=== PATIENT | male | born 1960 | race Asian ===

== ENCOUNTER 2025-04-15 10:32 | Emergency (ER) | payer BC, MEDICARE, OTHER, SELFPAY ==
--- NOTE | ~2025-04-15 | XR_ITS ---
EXAM/PROCEDURE: XR chest 2V - 04/15/2025 13:05 CDT HISTORY: 64 years old Male with Swallowed foreign body TECHNIQUE: Two view(s) of the chest. COMPARISON: None available. FINDINGS: LUNGS/ PLEURA: No focal consolidation. No appreciable pneumothorax or large pleural effusion. HEART/ MEDIASTINUM: Heart appears normal in size. BONES: No acute osseous abnormality. OTHER: Visualized upper abdomen is unremarkable. No radiopaque foreign body seen. IMPRESSION: No acute process. No radiopaque foreign body seen. Reviewed, dictated and finalized at location A.
--- NOTE | ~2025-04-15 | XR_ITS ---
EXAMINATION: XR esophogram water soluble DATE: 04/15/2025 14:34 INDICATION: Concern for esophageal injury TECHNIQUE: The patient drank water-soluble contrast. Fluoroscopic spot radiographs of the hypopharynx and esophagus were obtained. Fluoroscopy exposure time was 0.9 minutes. A total of 856 fluoroscopic images recorded. Total DAP was 1.3 Gycm^2. COMPARISON: None. FINDINGS: There is and up to 2 cm diameter diverticulum with smooth mucosal margins arising from the right side of the mid thoracic esophagus which transiently fills with gas and contrast. No evident ex tra luminal contrast extravasation or mucosal irregularity to suggest esophageal injury. No foreign b odies identified along the esophagus. Esophageal motility is normal. There is no hiatal hernia. IMPRESSION: 1. Likely incidental 2 cm esophageal diverticulum arising from the right side of the midthoracic esop hagus. No mucosal irregularities or extra luminal extravasation to suggest esophageal injury or evide nt retained foreign bodies. Reviewed, dictated and finalized at location A. IMPRESSION: 1. Likely incidental 2 cm esophageal diverticulum arising from the right side o f the midthoracic esophagus. No mucosal irregularities or extra luminal extrava sation to suggest esophageal injury or evident retained foreign bodies.
[2025-04-15 10:43] VITALS: BP 181/89; PULSE 73; RESP 18; TEMP 36.3; O2SAT 100
--- OUTSIDE RECORDS SUMMARY | 2025-04-15 12:09 | XMS_ITS | Encounter Summary ---
Author Name [facility] [facility] [place] Address [address] [place] [address] Care Team Providers Care Charity Fundraiser Name Role Phone LORY LUU Primary Care Provider [facility] Insurance Providers: All historical and current Section Date Range: From patient's date of to the date document was created. This section includes the names of all active insurance providers for the patient. Insurance Provider Type of Coverage Plan Name Start of Policy Coverage End of Policy Coverage Group Number Member ID Insurance Provider's Telephone Number Policy Dailey's Name Patient's Relationship to Policy Dailey [place] PREFERRED PROVIDER ORGANIZAT ION (PPO) [facility] [facility] [facility] OUT OF Jun 10, 2017 [id number] [phone] Lana ESCOBAR PATIENT ANTHEM [place]BS [place] PREFERRED PROVIDER ORGANIZAT ION (PPO) HEALT HSELE CT OUT OF Jun 10, 2017 [id number] [phone] Lana ESCOBAR PATIENT ANTHE[place] COMPREHEN SIVE MAJOR MEDICAL HEALT H SELEC T BENNIE D Jun 10, 2017 [id number] [phone] Lana ESCOBAR PATIENT [place] PREFERRED PROVIDER ORGANIZAT ION (PPO) HEALT HSELE CT OUT OF Jun 10, 2017 [id number] [phone] KLINCAR,T HOMAS PATIENT [place] PREFERRED PROVIDER ORGANIZAT ION (PPO) ALY AYALA COMM AIDAN Jun 10, 2008 [id number] [phone] Lana ESCOBAR [place] PATIENT BC BS [place] POINT OF SERVICE HEALT H[facility]LE [facility] OF [place] Jun 10, 2017 [id number] IMANIDEBORAHLana PONCHOS PATIENT [place] BS [place] POINT OF SERVICE [facility] [facility] OF [place] Jun 10, 2017 [id number] AKT ESCOBAR PATIENT BC BS [place] POINT OF SERVICE [facility] OF [place] * Jun 10, 2017 [id number] LUZKAT PATIENT [place] PREFERRED PROVIDER ORGANIZAT ION (PPO) HEALT HSELE CT OUT OF Jun 10, 2017 [id number] [phone] DYANLana MENDEZ P[place] PREFERRED PROVIDER ORGANIZAT ION (PPO) ALY AYALA [facility]ITY Jun 10, 2008 [id number] [phone] DYANANDREALana HOMAS PATIENT BCBS [place] COMPREHEN SIVE MAJOR MEDICAL HEALT H SELEC T SECON D Jun 10, 2017 [id number] LUZLana HOMAS PATIENT BCBS [place] COMPREHEN SIVE MAJOR MEDICAL HEALT HSELE CT SECON DA Jun 10, 2017 [id number] [phone] Lana ESCOBAR [place] PATIENT BCBS [place]) PREFERRED PROVIDER ORGANIZAT ION (PPO) HEALT HSELE CT OUT OF Jun 10, 2017 [id number] DYANANDREA,Lana HOMAS PATIENT [place]) PREFERRED PROVIDER ORGANIZAT ION (PPO) HEALT HSELE CT OUT OF Jun 10, 2017 [id number] Lana ESCOBAR HOMAS PATIENT [employer] ([id number]) PRESCRIPT [place] Oct 10, 2023 [id number] KAT ESCOBAR PATIENT MEDICARE (WNR) MEDICARE (M) PART A Jun 10, 2023 PART A [id number] Lana ESCOBAR PATIENT MEDICARE (WNR) MEDICARE (M) PART B Jun 10, 2023 PART B [id number] [phone] Lana ESCOBAR PATIENT MEDICARE (WNR) MEDICARE (M) PART A Jun 10, 2023 PART A [id number] [phone] Lana ESCOBAR PATIENT MEDICARE (WNR) MEDICARE (M) PART B Jun 10, 2023 PART B [id number] LUZLana PAMELLA PATIENT OPTUM RX PRESCRIPT ION [place]BS [place] Jun 10, 2017 [id number] Lana ESCOBAR PATIENT OPTUM RX PRESCRIPT ION HEALT HSELE CT [place] RX Jun 10, 2017 [id number] Lana ESCOBAR PATIENT OPTUMRX PRESCRIPT ION RX PLAN Jun 10, 2017 [id number] [phone] Lana ESCOBAR PATIENT PRIME THERAPEUTI CS PRESCRIPT ION BCBSI L ILDR Jun 10, 2008 ILDR [id number] [phone] Lana ESCOBAR PATIENT -FO R-LIFE TRICA RE FOR LIFE WNR Jun 10, 2023 FOR LIFE [id number] [phone] DYANANDREALana PAMELLA PATIENT [employer] [place] PREFERRED PROVIDER ORGANIZAT ION (PPO) [facility]ALT [facility] [facility] OF [place] Jun 10, 2017 [id number] [phone] Lana ESCOBAR PATIENT [employer] [place] POINT OF SERVICE [facility]ALT [facility]LE [place] OF [place] Jun 10, 2017 [id number] [phone] Lana ESCOBAR PATIENT [employer] [place]) PREFERRED PROVIDER ORGANIZAT ION (PPO) DEIRDRE SANTANA MMUNI TYCOL Jun 10, 2008 [id number] [phone] DYANANDREALana CAN PATIENT Selected Encounter This section includes the information on record at [place] for the Encounter. Date/Time Encounter Type Encounter Description Reason Provider Source Feb 06, 2025 01:00 PM HEARING AID XM&SLCTN [facility] AUDIOLOGY ICD-10-CM H90.3 Sensorineural hearing loss, bilateral MARCO PFEIFFER Encounter Template Text not used by [place] Assessments - Encounter Diagnoses This section includes the primary and secondary diagnoses documented for the Encounter. Date/Time Primary/Secondary Diagnosis Diagnosis Name Provider Source Feb 06, 2025 01:57 PM PRIMARY Sensorineural hearing loss, bilateral PARESH LONGORIA [facility] Plan of Treatment: Future Appointments (+ 6 months) and Future Tests (+/- 45 days) The Plan of Treatment section includes future care activities for the patient from all [place] treatmentfacilities. This section includes future appointments and future orders which are active, pending or scheduled. Future Appointments This section includes appointments that were scheduled to occur 6 months from the date of the Encounter, up to a maximum of 20 appointments. The data comes from all [place] treatment facilities. Appointment Date/Time Appointment Type Appointme nt Facility Name Mar 22, 2025 07:15 AM AMBULATORY - [facility] Lab Results: +/- 30 days of the encounter This section includes the Chemistry and Hematology Lab Results on record with [place] for the patient. Radiology Reports and Pathology Reports are provided separately, in subsequent sections. Lab Results This section contains the Chemistry/Hematology Results that were resulted 30 days before or 30 daysafter the date of the Encounter. Date/Time Source Result Type Result - Unit Interpretation Reference Range Specimen Type Comment Jan 31, 2025 09:53 AM [facility] FOLATE (STL-MA) SERUM Specimen Type: SERUM No comment entered. Ordering Provider: LORY LUU Report Released Date/Time: Jan 31, 2025 09:50 AM Reporting Lab: [address] [phone] Performing Lab: [address] [address] FOLATE (STL-MA) >20.0 ng/mL H 7-20 Jan 31, 2025 09:48 AM [facility] MAGNESIUM PLASM A Specimen Type: PLASMA No comment entered. Ordering Provider: LORY LUU Report Released Date/Time: Jan 10, 2025 01:22 PM Reporting Lab: [facility] [address] [address] Performing Lab: [address] [address] MAGNESIUM 2.4 mg/dL 1.6-2.6 Jan 31, 2025 09:48 AM [facility] B12 SERUM Specimen Type: SERUM No comment entered. Ordering Provider: LORY LUU Report Released Date/Time: Jan 10, 2025 01:22 PM Reporting Lab: [address] [phone] Performing Lab: [address] [address] B12 681 pg/mL 213-816 Jan 31, 2025 09:48 AM [facility] VITAMIN D, 25-HYDROXY SERUM Speci men Type: SERUM No comment entered. Ordering Provider: LORY LUU Report Released Date/Time: Jan 10, 2025 01:22 PM Reporting Lab: [address] [address] Performing Lab: [address] [address] VITAMIN D, 25-HYDROXY 52.6 ng/mL 30-96 Jan 31, 2025 09:48 AM [facility] URINE ALBUMIN PANEL (MA) URINE Sp ecimen Type: URINE No comment entered. Ordering Provider: LORY LUU Report Released Date/Time: Jan 10, 2025 01:22 PM Reporting Lab: [address] [phone] Performing Lab: [address] [phone] uACR (PB-MA) 28.8 mg/g <=30 CREATININE (URINE)(MA) 52 mg/dL URINE ALBUMIN (MA) 1.5 mg/dL Jan 31, 2025 09:48 AM [facility] HGA1C BLOOD Specimen Type: BLOOD No comment entered. Ordering Provider: LORY LUU Report Released Date/Time: Jan 10, 2025 01:22 PM Reporting Lab: [address] [phone] Performing Lab: [facility] [address] [place] [address] HGA1C 7.0 H 4.0-6.0 Jan 31, 2025 09:48 AM [facility] BASIC METABOLIC PANEL PLASMA Speci men Type: PLASMA No comment entered. Ordering Provider: LORY LUU Report Released Date/Time: Jan 10, 2025 01:22 PM Reporting Lab: [address] [phone] Performing Lab: [address] [address] CREATININE 1.5 mg/dL H .7-1.3 UREA NITROGEN 32 mg/dL H 9.0-25.0 GLUCOSE 130 mg/dL H 72-99 SODIUM 138 meq/L 136-145 POTASSIUM 5.0 meq/L 3.5-5 CHLORIDE 104 meq/L 98-107 CARBON DIOXIDE 21 meq/L L 22-31 CALCIUM 9.6 mg/dL 8.4-10.4 EGFR (CKD-EPI 2020) 51 Jan 31, 2025 09:48 AM [facility] HEPATIC FUNCTION PANEL (MA) PLASMA Specimen Type: PLASMA No comment entered. Ordering Provider: LORY LUU Report Released Date/Time: Jan 10, 2025 01:22 PM Reporting Lab: [address] [phone] Performing Lab: [address] [address] PROTEIN 6.9 g/dL 6.0-8.6 ALBUMIN 4.5 g/dL 3.4-5.0 TOTAL BILIRUBIN 0.5 mg/dL 0.2-1.2 ALKALINE PHOSPHATASE 74 U/L 40-150 AST/SGOT 23 U/L 5-34 ALT/SGPT 21 U/L 8-40 CONJ. BILIRUBIN 0.2 mg/dL 0.0-0.5 Jan 31, 2025 09:48 AM [facility] CBC BLOOD Specimen Type: BLOOD No comment entered. Ordering Provider: LORY LUU Report Released Date/Time: Jan 10, 2025 01:22 PM Reporting Lab: [address] [address] Performing Lab: [place] [phone] WBC 6.8 10*3/uL 3.6-11.2 RBC 4.65 10*6/uL 4.10-5.70 HGB 14.3 g/dL 13.1-16.8 HCT 42.3 38.2-48.4 MCV 91.0 fL 80.0-100.0 MCH 30.8 pg 27.0-34.0 MCHC 33.8 g/dL 33.0-36.0 PLT 323 10*3/uL 150-400 MPV 9.7 fL 7.5-11.2 RDW 11.5 L 11.8-15.1 LYMPHOCYTES, AUTO % 16.2 MONOCYTES, AUTO % 7.8 NEUTROPHILS, AUTO % 63.5 EOSINOPHILS, AUTO % 11.5 BASOPHILS, AUTO % 0.9 LYMPHOCYTES, ABSOLUTE 1.10 10*3/uL 0.77- 4.50 MONOCYTES, ABSOLUTE 0.53 10*3/uL 0.19-0. 8 NEUTROPHILS, ABSOLUTE 4.32 10*3/uL 2.10- 8.00 EOSINOPHILS, ABSOLUTE 0.78 10*3/uL H 0.00- 0.60 BASOPHILS, ABSOLUTE 0.06 10*3/uL 0.00-0. 20 IMMATURE GRANS, AUTO % 0.1 IMMATURE GRANS, AUTO ABS 0.01 10*3/uL 0. 00-0.05 Jan 31, 2025 09:48 AM [facility] TSH (MA-PB) SERUM Specimen Typ e: SERUM No comment entered. Ordering Provider: LORY LUU Report Released Date/Time: Jan 10, 2025 01:22 PM Reporting Lab: [facility] [address] [place], [place] [phone] Performing Lab: [place] [phone] TSH 2.579 u[IU]/mL 0.470-5.000 Jan 31, 2025 09:48 AM [facility] PSA (MA) SERUM Specimen Type: SERUM No comment entered. Ordering Provider: LORY LUU Report Released Date/Time: Jan 10, 2025 01:22 PM Reporting Lab: [place] [phone] Performing Lab: [address] [place] [address] PSA (MA) 1.5 ng/mL 0.0-4.0 Jan 31, 2025 09:48 AM [facility] URINALYSIS (MA-EV) URINE Specimen Type: URINE Comment: Microscopic not indicated Ordering Provider: LORY LUU Report Released Date/Time: Jan 10, 2025 01:22 PM Reporting Lab: [place] [phone] Performing Lab: [place] [phone] URINE COLOR Yellow Yellow SPECIFIC GRAVITY 1.018 UROBILINOGEN Normal mg/dL 0.1-1.0 U.BILIRUBIN Negative mg/dL Negative U.KETONES Negative mg/dL Negative U.PROTEIN Negative mg/dL Negative U.PH 6.5 5.0-8.0 APPEARANCE Clear Clear U.BLOOD Negative mg/dL Negative U.NITRITE Negative mg/dL Negative U.LEUK.EST. Negative Negative URINE GLUCOSE (PB-MA-EV) >1000 mg/dL H Neg ative Jan 31, 2025 09:48 [address] [facility] LIPID PANEL (MA) PLASMA Specimen T ype: PLASMA No comment entered. Ordering Provider: LORY LUU Report Released Date/Time: Jan 10, 2025 01:22 PM Reporting Lab: [address] [phone] Performing Lab: [address] [address] CHOLESTEROL 78 mg/dL 0-200 TRIGLYCERIDE 162 mg/dL H 0-150 CALCULATED LDL 11 mg/dL HDL(New) 35 mg/dL L >=40 Encounter Notes: All associated encounter notes This section contains the clinical notes associated to the Encounter. Date/Time Encounter Note(s) Provider Source Feb 06, 2025 12:53 PM AUDIOLOGY E & M NO TE: LOCAL TITLE: AUDIOLOGY EVALUATION [place] STANDARD TITLE: AUDIOLOGY E & M NOTE DATE OF NOTE: FEB 06, 2025@12:53 ENTRY DATE: FEB 06, 2025@13:01:25 AUTHOR: PARESH LONGORIA COSIGNER: HOMA PFEIFFER URGENCY: STATUS: COMPLETED AUDIOLOGY EVALUATION LUIS Has ADDENDA S: C/O: is seen today for an audiologic evaluation due to slight gradual decrease in hearing, bilaterally over the past few years. reports difficulties understanding speech with his current hearing aids, especially in noise, and while at the theater. He is interested in updated hearing aid technology. denies otalgia, aural fullness, and otorrhea. H/O: Vet denied major changes in medical or hearing health history since last hearing evaluation. Hearing loss established by previous testing: [x] Sensorineural [] Mixed [] Conductive [] None (Normal hearing) Tinnitus established by previous testing: [x] Yes [] No Current hearing aid technology: [x] Yes [] No Hearing Aid Information: Right ear: Umer Edge AI 2400 SN: [id number] Fittin Left ear: Umer Edge AI 2400 SN: [id number] Fittin O: Otoscopic evaluation revealed: Clear ear canals [x] R [x] L Non occluding cerumen [] R [] L Occluding cerumen [] R [] L Functional limitations [x] none A: Audiometric results indicated: RIGHT EAR: CONFIGURATION: severe to profound sensorineural hearing loss TO [] Normal [] Normal [] Mild [] Mild [] Moderate [] Moderate [] Moderately-severe [] Moderately-severe [x] Severe [] Severe [] Profound [x] Profound TYPE: [x] Sensorineural hearing loss [] Mixed hearing loss [] Conductive hearing loss TYMPANOMETRIC RESULTS [] Normal [x] Abnormal: 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 ACOUSTIC REFLEX RESULTS IPSILATERAL 500HZ []Present [] Absent/Elevated 1000HZ []Present [] Absent/Elevated 2000HZ []Present [] Absent/Elevated 4000hz []Present [] Absent/Elevated [x]Not performed/ unable to seal CONTRALATERAL (PROBE RIGHT) 500HZ []Present [] Absent/Elevated 1000HZ []Present [] Absent/Elevated 2000HZ []Present [] Absent/Elevated 4000hz []Present [] Absent/Elevated [x]Not performed/ unable to seal LEFT EAR: CONFIGURATION: mild sloping to moderately-severe sensorineural hearing loss TO [] Normal [] Normal [x] Mild [] Mild [] Moderate [] Moderate [] Moderately-severe [x] Moderately-severe [] Severe [] Severe [] Profound [] Profound TYPE: [x] Sensorineural hearing loss [] Mixed hearing loss [] Conductive hearing loss TYMPANOMETRIC RESULTS [x] Normal [] Abnormal: [] Not completed: Could not establish seal. ACOUSTIC REFLEX RESULTS IPSILATERAL 500HZ []Present [] Absent/Elevated 1000HZ []Present [] Absent/Elevated 2000HZ []Present [] Absent/Elevated 4000hz []Present [] Absent/Elevated [x]Not performed/ unable to seal CONTRALATERAL (PROBE LEFT) 500HZ []Present [] Absent/Elevated 1000HZ []Present [] Absent/Elevated 2000HZ []Present [] Absent/Elevated 4000hz []Present [] Absent/Elevated [x]Not performed/ unable to seal Speech Recognition ability: RIGHT EAR: 48% LEFT EAR: 100% []Excellent 94-100% [x]Excellent 94-100% [] Good 80-92% [] Good 80-92% [] Fair 70-78% [] Fair 70-78% [x] Poor 0-68% [] Poor 0-68% Discussed results with . Today's results are consistent with previous testing completed on 01/14/2022 Hearing aid candidate: [x] yes [] no interested in hearing aids: [x] yes [] no Earmold impressions taken: [] yes [x] no 's hearing loss is so significant that it interferes with or restricts communication to the extent that it affects the 's participation in the provision of health care services. Discussed different styles of hearing aids and relevant assistive listening devices with patient. [place]'s hobbies include attending live theater monthly. Telecoil was discussed and the option a T-coil in a SUE style hearing aid was offered. [place] declined a SUE style hearing aid and would like to continue using an in-the-ear (ITE) style hearing aid. Remote Rashawn Plus was discussed and [place] is interested in trying this for the telecoil feature in the [facility]. Hearing aids were cleaned, microphones brushed, wax filters replaced, and listening check revealed clear sound quality. Hearing aids were reprogrammed to today's audiogram and [place] reported good sound quality. He declined any further acoustic adjustments. P: Diagnostic treatment plan: Re-test hearing per request Hearing aid(s) ordered: Binaural Iwona Garcia AI ITC-R Order number: [id number] Accessories ordered: Remote Rashawn Plus and TV Streamer Order number: [id number] Assistive listening device ordered: [] Amplified phone [] Smoke detector [] Carbon Monoxide detector [] Pocketalker [] Tinnitus masker [x] None Vet will follow up in 30 days for issuing of hearing aids. Patient Prognosis to treatment: [] Good [x] Fair [] Poor /yara/ PARESH LONGORIA Audiology Soft Work Wrapper Examiner Signed: 02/06/2025 13:57 /yara/ STEPHANIE DAY, OSVALDO-A THERMIT WELDING MACHINE OPERATOR Cosigned: 02/06/2025 15:26 02/06/2025 ADDENDUM STATUS: COMPLETED This provider has reviewed this progress note, and is in agreement with the audiology encounter and clinical thinking of this progress note. /yara/ STEPHANIE DAY, OSVALDO-A THERMIT WELDING MACHINE OPERATOR Signed: 02/06/2025 15:26 PARESH LONGORIA [facility]
--- OUTSIDE RECORDS SUMMARY | 2025-04-15 12:09 | XMS_ITS | Encounter Summary ---
Author Name [facility] Address [address] [place] [address] Care Team Providers Care Counseling Aide Name Role Phone LORY LUU Primary Care Provider [facility] Insurance Providers: All historical and current [...] HSELE CT OUT OF Jun 10, 2017 [id number] [phone] Lana ESCOBAR PATIENT [employer] [employer] PREFERRED PROVIDER ORGANIZAT ION (PPO) HEALT HSELE CT OUT OF Jun 10, 2017 [phone] Lana ESCOBAR PATIENT [place] COMPREHEN SIVE MAJOR MEDICAL HEALT H [place] T BENNIE D Jun 10, 2017 [id number] [phone] Lana ESCOBAR PATIENT [place] PREFERRED PROVIDER ORGANIZAT ION (PPO) HEALT HSELE CT OUT OF Jun 10, 2017 [id number] [phone] KLINCAR,T HOMAS PATIENT [place] PREFERRED PROVIDER ORGANIZAT ION (PPO) ALY AYALA COMM AIDAN Jun 10, 2008 [id number] Lana ESCOBAR [place] PATIENT BC BS [place] POINT OF SERVICE HEALT HSELE CT OF [place] Jun 10, 2017 [id number] DYANANDREALana PONCHOS PATIENT [place] BS [place] POINT OF SERVICE [facility] [facility] OF [place] Jun 10, 2017 [id number] LUZKAT PATIENT BC BS [place] POINT OF SERVICE HEALT [facility] OF [place] * Jun 10, 2017 [id number] KAT ESCOBAR PATIENT [place] PREFERRED PROVIDER ORGANIZAT ION (PPO) HEALT HSELE CT OUT OF Jun 10, 2017 [id number] [phone] Lana ESCOB[place]REFERRED PROVIDER ORGANIZAT ION (PPO) ALY AYALA COMMU NITY Jun 10, 2008 [id number] [phone] Lana ESCOBAR [place] PATIENT BCBS [place] COMPREHEN SIVE MAJOR MEDICAL HEALT H SELEC T SECON D Jun 10, 2017 [id number] Lana ESCOBAR [place] PATIENT [place] COMPREHEN SIVE MAJOR MEDICAL HEALT HSELE CT SECON DA Jun 10, 2017 [id number] [phone] Lana ESCOBARS PATIENT [place] PREFERRED PROVIDER ORGANIZAT ION (PPO) HEALT HSELE CT OUT OF Jun 10, 2017 [id number] Lana ESCOBAR [place] PATIENT [place] PREFERRED PROVIDER ORGANIZAT ION (PPO) HEALT HSELE CT OUT OF Jun 10, 2017 [id number] Lana ESCOBARS PATIENT [employer] ([id number]) PRESCRIPT ION [place] Oct 10, 2023 [id number] [phone] KAT ESCOBAR PATIENT MEDICARE (WNR) MEDICARE (M) PART A Jun 10, 2023 PART A [id number] Lana ESCOBARS PATIENT MEDICARE (WNR) MEDICARE (M) PART B Jun 10, 2023 PART B [id number] [phone] Lana ESCOBARS PATIENT MEDICARE (WNR) MEDICARE (M) PART A Jun 10, 2023 PART A [id number] Lana ESCOBAR PATIENT MEDICARE (WNR) MEDICARE (M) PART B Jun 10, 2023 PART B [id number] [phone] Lana ESCOBAR PATIENT OPTUM RX PRESCRIPT ION [place] Jun 10, 2017 [id number] [id number] Lana ESCOBAR PATIENT OPT[employer] RX PRESCRIPT ION HEALT HSELE CT [place] RX Jun 10, 2017 [id number] [phone] Lana ESCOBAR PATIENT OPTUMRX PRESCRIPT ION RX PLAN Jun 10, 2017 [id number] [phone] Lana ESCOBAR PATIENT PRIME THERAPEUTI CS PRESCRIPT ION BCBSI L ILDR Jun 10, 2008 ILDR [id number] [phone] Lana ESCOBAR PATIENT -FO R-LIFE TRICA RE FOR LIFE WNR Jun 10, 2023 FOR LIFE [id number] [phone] DYANANDREALana PATIENT [employer] [place] PREFERRED PROVIDER ORGANIZAT ION (PPO) HEALT [facility]SELE [facility] OF [place] Jun 10, 2017 [id number] [phone] Lana ESCOBAR PATIENT [employer] [place] POINT OF SERVICE HEALT HSELE CT OF [place] Jun 10, 2017 [id number] [phone] Lana ESCOBAR PATIENT [employer] [place]) PREFERRED PROVIDER ORGANIZAT ION (PPO) DEIRDRE SANTANA MMUNI TYCOL Jun 10, 2008 [id number] Lana ESCOBAR PATIENT Selected Encounter This section includes the information on record at [facility] for the Encounter. Date/Time Encounter Type Encounter Description Reason Provider Source Mar 22, 2025 07:15 AM HEARING AID REPAIR/MODIFYIN G AUDIOLOGY ICD-10-CM H90.3 Sensorineural hearing loss, bilateral MARK KEITA I[facility] Encounter Template Text not used by [facility] Assessments - Encounter Diagnoses This section includes the primary and secondary diagnoses documented for the Encounter. Date/Time Primary/Secondary Diagnosis Diagnosis Name Provider Source Mar 22, 2025 07:46 AM PRIMARY Sensorineural hearing loss, bilateral MARK KEITA [facility] Encounter Notes: All associated encounter notes This section contains the clinical notes associated to the Encounter. Date/Time Encounter Note(s) Provider Source Mar 22, 2025 07:07 AM AUDIOLOGY PROGRESS NOTE: LOCAL TITLE: AUDIOLOGY HEARING AID ISSUE PA STANDARD TITLE: AUDIOLOGY PROGRESS NOTE DATE OF NOTE: MAR 22, 2025@07:07 ENTRY DATE: MAR 22, 2025@07:07:11 AUTHOR: MARK KEITA EXP COSIGNER: URGENCY: STATUS: COMPLETED AUDIOLOGY HEARING AID ISSUE LUIS Has ADDENDA HEARING AID ISSUE- COLIN S: C/O: reports for hearing aid issuance. Previous hearing aid user: [x] yes [] no H/O: Date of last hearing evaluation: 02/06/25 Type of hearing loss established: [x] Sensorineural [] Mixed [] Conductive O: Otoscopic inspection revealed: Clear ear canals [x] R [x] L Non occluding wax [] R [] L Occluding wax [] R [] L Functional limitations [x] none Strengths: Motivated user Family Members/support person present during fitting: [x] Yes [] No A: Hearing aids were programmed for initial hearing aid fitting/issue. Hearing aid(s) issued: COLIN Right ear: Radha AI 24 ITC R SN: [id number] Fittin Left ear: Radha AI 24 ITC R SN: [id number] Fittin Type: [] Completely in the canal (CIC) [x] In the Canal (ITC) [] In the Ear (ITE) Battery Size(s): [x] Rechargeable, no power pack [] 312 [] 13 [] 675 Additional accessories: [id number] [employer] [facility] [id number] [employer] TV STREAMER Hearing Aids issued in es [x] Yes Supplies ordered: hear clear filters. Real Ear Verification Results: [] Excellent [x] Good [] Fair [] Poor Volume controls: [x] Enabled [] Disabled [] N/A Push buttons: [x] Enabled []VC [] Disabled [] N/A Wireless function: [x] Enabled [] Disabled [] N/A Manual programs activated: [] None [] Speech in noise [] Comfort in noise [] Zoomcontrol [] Speech in wind [] Public t-coil [] Mute [x] Other: double tap to start and stop streaming. Patient received standardized instruction regarding: [x] Parts of the hearing aid(s) [x] Recommended use and wear time [x] Proper insertion/removal of hearing aid(s) [x] Volume control use of hearing aid(s) [x] Care/maintenance of hearing aid(s) [x] Battery management, life expectancy, hazard warning [x] Supply order process via [facility] [x] Hearing aid repair process via [facility] [x] Use of hearing protection in noise [x] Realistic expectations of hearing aids, including: [x] Expected adjustment process [x] Importance of consistent hearing aid use [x] Appropriate expectations for hearing aid feedback [x] Expected benefit from hearing aids, including situations in which communication may remain challenging, even with hearing aids Patient was given 20-30 minute MG trial during today's appointment. Patient was instructed on how to pair the hearing aids to any assistive listening devices issued today, and was provided with information and support resources related to pairing the hearing aids to a cell phone, if applicable. Demonstration was provided for how to change any replaceable parts, including domes, wax guards, and tubes as applicable. Patient was provided with a copy of this clinic's [facility] booklet at today's appointment. Total time spent on this standardized orientation instruction: 15-30 minutes. P: Patient was offered 4-6 week follow up appointment. Follow up appointment scheduled: [] yes [x] no Patient will contact Audiology Clinic in the event of soreness/irritation from the hearing aid(s) or if any other problems/questions arise. Patient was given the Outcome Measures Questionnaire to be completed in 4-6 weeks and mailed back to the Audiology Clinic. Patient prognosis to treatment: [] Good [x] Fair [] Poor Comments: /yara/ MARK Milligan, OSVAL[employer]ARD MOTOR TESTER Signed: 03/22/2025 07:47 03/22/2025 ADDENDUM STATUS: COMPLETED The following hearing aids were sent in for repair due to excessive battery drain with direct shipping back to this . [id number] MIKE ALONZO R [id number] MIKE HARDY [facility] R /yara/ MARK Milligan, OSVALDO-A CLINICAL OUTBOARD MOTOR TESTER Signed: 03/22/2025 07:49 MARK KEITA [facility]
--- OUTSIDE RECORDS SUMMARY | 2025-04-15 12:09 | XMS_ITS | Encounter Summary ---
Author Name [facility] [place] [facility] [place] Address [address] [place] [address] Care Team Providers Care Operational Intelligence Officer Name Role Phone LORY LUU Primary Care Provider Unavaillegacy [facility] e Insurance Providers: All historical and current [...] HSELE CT OUT OF Jun 10, 2017 [id number] [phone] Lana ESCOBAR PATIENT ANTHEM BCBS [place] PREFERRED PROVIDER ORGANIZAT ION (PPO) HEALT HSELE CT OUT OF Jun 10, 2017 [id number] [phone] Lana ESCOBAR PATIENT ANTHEM [place] COMPREHEN SIVE MAJOR MEDICAL HEALT H SELEC T BENNIE D Jun 10, 2017 [id number] [phone] Lana ESCOBAR PATIENT [place] PREFERRED PROVIDER ORGANIZAT ION (PPO) HEALT HSELE CT OUT OF Jun 10, 2017 [id number] [phone] Lana ESCOBARS PATIENT [place] PREFERRED PROVIDER ORGANIZAT ION (PPO) ALY AYALA COMM AIDAN Jun 10, 2008 [id number] [phone] Lana ESCOBAR HOM[place] PATIENT BC BS [place] POINT OF SERVICE HEALT HSELE CT OF [place] Jun 10, 2017 [id number] Lana ESCOBAR PON[place] PATIENT BC BS [place] POINT OF SERVICE HEALT H[facility] [facility] OF [place] Jun 10, 2017 [id number] LUZKAT PATIENT BC BS [place] POINT OF SERVICE HEALT HSE[place] OF [place] * Jun 10, 2017 [id number] KAT ESCOBAR PATIENT [place] PREFERRED PROVIDER ORGANIZAT ION (PPO) HEALT HSELE CT OUT OF Jun 10, 2017 [id number] [phone] Lana ESCOBARS [place] PREFERRED PROVIDER ORGANIZAT ION (PPO) ALY AYALA COMMU NITY Jun 10, 2008 [id number] [phone] DYANLana MENDEZ HOMAS PATIENT BCBS [place]AR[place] COMPREHEN SIVE MAJOR MEDICAL HEALT H SELEC T SECON D Jun 10, 2017 [id number] Lana ESCOBAR [place] PATIENT BCBS [place] COMPREHEN SIVE MAJOR MEDICAL HEALT HSELE CT SECON DA Jun 10, 2017 [id number] [phone] Lana ESCOBAR [place] PATIENT BCBS [place]) PREFERRED PROVIDER ORGANIZAT ION (PPO) HEALT HSELE CT OUT OF Jun 10, 2017 [id number] Lana ESCOBAR [place] PATIENT BCBS [place]) PREFERRED PROVIDER ORGANIZAT ION (PPO) HEALT HSELE CT OUT OF Jun 10, 2017 [id number] Lana ESCOBARS PATIENT [employer] ([id number]) PRESCRIPT ION [place]OF [place] Oct 10, 2023 [id number] KAT ESCOBAR PATIENT MEDICARE (WNR) MEDICARE (M) PART A Jun 10, 2023 PART A [id number] Lana ESCOBAR PATIENT MEDICARE (WNR) MEDICARE (M) PART B Jun 10, 2023 PART B [id number] [phone] Lana ESCOBAR PATIENT MEDICARE (WNR) MEDICARE (M) PART A Jun 10, 2023 PART A [id number] Lana ESCOBAR PATIENT MEDICARE (WNR) MEDICARE (M) PART B Jun 10, 2023 PART B [id number] Lana ESCOBAR PATIENT OPTUM RX PRESCRIPT ION [place]BS [place] Jun 10, 2017 [id number] [phone] Lana ESCOBAR PATIENT OPTUM RX PRESCRIPT ION HEALT HSELE CT [place] RX Jun 10, 2017 ERSTX [id number] Lana ESCOBAR PATIENT OPTUMRX PRESCRIPT ION RX PLAN Jun 10, 2017 ERSTX [id number] [phone] Lana ESCOBAR PATIENT PRIME THERAPEUTI CS PRESCRIPT ION BCBSI L ILDR Jun 10, 2008 ILDR [id number] [phone] Lana ESCOBAR PATIENT -FO R-LIFE TRICA RE FOR LIFE WNR Jun 10, 2023 FOR LIFE [id number] [phone] Lana ESCOBAR PATIENT [employer] [place] PREFERRED PROVIDER ORGANIZAT ION (PPO) HEALT HSELE CT OF [place] Jun 10, 2017 [id number] [phone] Lana ESCOBAR PATIENT [employer] [place] POINT OF SERVICE HEALT HSELE CT OF [place] Jun 10, 2017 [id number] [phone] Lana ESCOBAR PATIENT [employer] [place]) PREFERRED PROVIDER ORGANIZAT ION (PPO) DEIRDRE SANTANA MMUNI TYCOL Jun 10, 2008 [id number] Lana ESCOBAR PATIENT Selected Encounter This section includes the information on record at [place] for the Encounter. Date/Time Encounter Type Encounter Description Reason Provider Source Jan 31, 2025 09:30 AM OFFICE O/P EST HI 40 MIN PRIMARY CARE/MEDICINE ICD-10-CM H81.01 Meniere's disease, right ear LORY LUU Alanna Encounter Template Text not used by [place] Assessments - Encounter Diagnoses This section includes the primary and secondary diagnoses documented for the Encounter. Date/Time Primary/Secondary Diagnosis Diagnosis Name Provider Source February 13, 2025 12:13 PM PRIMARY Meniere's disease, right ear LORY LUU [facility] February 13, 2025 12:13 PM SECONDARY Allergic rhinitis, unspecified [facility] February 13, 2025 12:13 PM SECONDARY Essential (primary) hypertension [facility] February 13, 2025 12:13 PM SECONDARY Hyperlipidemia, unspecified [facility] February 13, 2025 12:13 PM SECONDARY Migraine, unsp, not intractable, without status migrainosus [facility] February 13, 2025 12:13 PM SECONDARY Occlusion and stenosis of unspecified vertebral artery [facility] February 13, 2025 12:13 PM SECONDARY Type 1 diabetes mellitus without complications [facility] February 13, 2025 12:13 PM SECONDARY Unspecified atrial flutter [facility] Plan of Treatment: Future Appointments (+ 6 months) and Future Tests (+/- 45 days) The Plan of Treatment section includes future care activities for the patient from [facility]. This section includes future appointments and future orders which are active, pending or scheduled. Future Appointments This section includes appointments that were scheduled to occur 6 months from the date of the Encounter, up to a maximum of 20 appointments. The data comes from all [place] treatment facilities. Appointment Date/Time Appointment Type Appointme nt Facility Name Feb 06, 2025 01:00 PM AMBULATORY - REHAB MEDIC[facility] Mar 22, 2025 07:15 AM [facility] Lab Results: +/- 30 days of the encounter This section includes the Chemistry and Hematology Lab Results on record with [place] for the patient. Radiology Reports and Pathology Reports are provided separately, in subsequent sections. Lab Results This section contains the Chemistry/Hematology Results that were resulted 30 days before or 30 daysafter the date of the Encounter. Date/Time Source Result Type Result - Unit Interpretation Reference Range Specimen Type Comment Jan 31, 2025 09:53 AM [facility] FOLATE (STL-MA) SERUM Specimen Type: SERUM No comment entered. Ordering Provider: LORY LUU Report Released Date/Time: Jan 31, 2025 09:50 AM Reporting Lab: [address] [address] Performing Lab: [address] [address] FOLATE (STL-MA) >20.0 ng/mL H 7-20 Jan 31, 2025 09:48 AM [facility] MAGNESIUM PLASM A Specimen Type: PLASMA No comment entered. Ordering Provider: LORY LUU Report Released Date/Time: Jan 10, 2025 01:22 PM Reporting Lab: [address] [address] Performing Lab: [address] [address] MAGNESIUM 2.4 mg/dL 1.6-2.6 Jan 31, 2025 09:48 AM [facility] B12 SERUM Specimen Type: SERUM No comment entered. Ordering Provider: LORY LUU Report Released Date/Time: Jan 10, 2025 01:22 PM Reporting Lab: [address] [address] Performing Lab: [address] [address] B12 681 pg/mL 213-816 Jan 31, 2025 09:48 AM [facility] VITAMIN D, 25-HYDROXY SERUM Speci men Type: SERUM No comment entered. Ordering Provider: LORY LUU Report Released Date/Time: Jan 10, 2025 01:22 PM Reporting Lab: [address] [address] Performing Lab: [address] [address] VITAMIN D, 25-HYDROXY 52.6 ng/mL 30-96 Jan 31, 2025 09:48 AM [facility] HGA1C BLOOD Specimen Type: BLOOD No comment entered. Ordering Provider: LORY LUU Report Released Date/Time: Jan 10, 2025 01:22 PM Reporting Lab: [address] [address] Performing Lab: [address] [address] HGA1C 7.0 H 4.0-6.0 Jan 31, 2025 09:48 AM [facility] URINE ALBUMIN PANEL (MA) URINE Sp ecimen Type: URINE No comment entered. Ordering Provider: LORY LUU Report Released Date/Time: Jan 10, 2025 01:22 PM Reporting Lab: [address] [address] Performing Lab: [address] [address] uACR (PB-MA) 28.8 mg/g <=30 CREATININE (URINE)(MA) 52 mg/dL URINE ALBUMIN (MA) 1.5 mg/dL Jan 31, 2025 09:48 AM [facility] BASIC METABOLIC PANEL PLASMA Speci men Type: PLASMA No comment entered. Ordering Provider: LORY LUU Report Released Date/Time: Jan 10, 2025 01:22 PM Reporting Lab: [address] [address] Performing Lab: [address] [address] CREATININE 1.5 mg/dL H .7-1.3 UREA NITROGEN 32 mg/dL H 9.0-25.0 GLUCOSE 130 mg/dL H 72-99 SODIUM 138 meq/L 136-145 POTASSIUM 5.0 meq/L 3.5-5 CHLORIDE 104 meq/L 98-107 CARBON DIOXIDE 21 meq/L L 22-31 CALCIUM 9.6 mg/dL 8.4-10.4 EGFR (CKD-EPI 2020) 51 Jan 31, 2025 09:48 AM [facility] HEPATIC FUNCTION PANEL (MA) PLASMA Specimen Type: PLASMA No comment entered. Ordering Provider: LORY LUU Report Released Date/Time: Jan 10, 2025 01:22 PM Reporting Lab: [address] [address] Performing Lab: [place] [phone] PROTEIN 6.9 g/dL 6.0-8.6 ALBUMIN 4.5 g/dL 3.4-5.0 TOTAL BILIRUBIN 0.5 mg/dL 0.2-1.2 ALKALINE PHOSPHATASE 74 U/L 40-150 AST/SGOT 23 U/L 5-34 ALT/SGPT 21 U/L 8-40 CONJ. BILIRUBIN 0.2 mg/dL 0.0-0.5 Jan 31, 2025 09:48 AM [facility] URINALYSIS (MA-EV) URINE Specimen Type: URINE Comment: Microscopic not indicated Ordering Provider: LORY LUU Report Released Date/Time: Jan 10, 2025 01:22 PM Reporting Lab: [place] [address] Performing Lab: [place] [address] URINE COLOR Yellow Yellow SPECIFIC GRAVITY 1.018 UROBILINOGEN Normal mg/dL 0.1-1.0 U.BILIRUBIN Negative mg/dL Negative U.KETONES Negative mg/dL Negative U.PROTEIN Negative mg/dL Negative U.PH 6.5 5.0-8.0 APPEARANCE Clear Clear U.BLOOD Negative mg/dL Negative U.NITRITE Negative mg/dL Negative U.LEUK.EST. Negative Negative URINE GLUCOSE (PB-MA-EV) >1000 mg/dL H Neg ative Jan 31, 2025 09:48 AM [facility] TSH (IA-PB) SERUM Specimen Typ e: SERUM No comment entered. Ordering Provider: LORY LUU Report Released Date/Time: Jan 10, 2025 01:22 PM Reporting Lab: [place] [phone] Performing Lab: [place] [phone] TSH 2.579 u[IU]/mL 0.470-5.000 Jan 31, 2025 09:48 AM [facility] CBC BLOOD Specimen Type: BLOOD No comment entered. Ordering Provider: LORY LUU Report Released Date/Time: Jan 10, 2025 01:22 PM Reporting Lab: [address] [place] [address] Performing Lab: [facility] [address] [place] [phone] WBC 6.8 10*3/uL 3.6-11.2 RBC 4.65 10*6/uL [...] 0. 00-0.05 Jan 31, 2025 09:48 AM [facility] PSA (MA) SERUM Specimen Type: SERUM No comment entered. Ordering Provider: LORY LUU Report Released Date/Time: Jan 10, 2025 01:22 PM Reporting Lab: [facility] [address] [place] [phone] Performing Lab: [address] [address] PSA (MA) 1.5 ng/mL 0.0-4.0 Jan 31, 2025 09:48 AM [facility] LIPID PANEL (MA) PLASMA Specimen T ype: PLASMA No comment entered. Ordering Provider: LORY LUU Report Released Date/Time: Jan 10, 2025 01:22 PM Reporting Lab: [place] [facility] [address] [facility] [address] Performing Lab: [facility] [address] [facility] [address] CHOLESTEROL 78 mg/dL 0-200 TRIGLYCERIDE 162 mg/dL H 0-150 CALCULATED LDL 11 mg/dL HDL(New) 35 mg/dL L >=40 Vital Signs: All taken on the encounter date This section contains inpatient and outpatient Vital Signs collected on the date of the Encounter. Date/Time Temperature Pulse Blood Pressure Respiratory Rate SP02 Pain Height Weight Body Mass Index Source Jan 31, 2025 09:08 AM 96.8 74 126/80 18 98 0 65 132.1 22 [place] [facility] Social History: Smoking Status (Most current) and Tobacco Use (All prior to encounter date) This section includes the most current, and the historical, smoking and tobacco- related health factors from the [place] facility where the Encounter took place. Current Smoking Status This section includes the most current smoking, or tobacco-related health factor, from the [place] facility where the Encounter took place. Date/Time Current Smoking Status Comment Natasha de la garza Jan 26, 2024 11:15 AM [place]-TOBACCO NEVER USED [facility] Tobacco Use History This section includes a history of the smoking, or tobacco-related health factors, that were collected on or before the date of the Encounter. The data comes from the [place] facility where the Encounter took place. Date/Time Smoking Status/Tobacco Use Comment Carie song Feb 03, 2023 11:45 AM [place]-TOBACCO NEVER USED [facility] Feb 04, 2022 10:30 AM [place]-TOBACCO NEVER USED [facility] Encounter Notes: All associated encounter notes This section contains the clinical notes associated to the Encounter. Date/Time Encounter Note(s) Provider Source Feb 01, 2025 06:31 AM ADDENDUM: LOCAL TITLE: Addendum STANDARD TITLE: ADDENDUM DATE OF NOTE: FEB 01, 2025@06:31:20 ENTRY DATE: FEB 01, 2025@06:31:22 AUTHOR: LORY LUU EXP COSIGNER: URGENCY: STATUS: COMPLETED Collection time: Jan 31, 2025@09:53 Test Name Result Units Range --------- ------ ----- ----- FOLATE (STL-MA) >20.0 H ng/mL 7 - 20 TSH 2.579 ulU/mL 0.470 - 5.000 B12 681 pg/mL 213 - 816 VITAMIN D, 25-HYDROXY 52.6 ng/mL 30 - 96 PSA (MA) 1.5 ng/mL 0.0 - 4.0 SODIUM 138 meq/L 136 - 145 POTASSIUM 5.0 meq/L 3.5 - 5 CHLORIDE 104 meq/L 98 - 107 UREA NITROGEN 32 H mg/dL 9.0 - 25.0 CREATININE 1.5 H mg/dL .7 - 1.3 CALCIUM 9.6 mg/dL 8.4 - 10.4 MAGNESIUM 2.4 mg/dL 1.6 - 2.6 PROTEIN 6.9 g/dL 6.0 - 8.6 ALBUMIN 4.5 g/dL 3.4 - 5.0 TRIGLYCERIDE 162 H mg/dL 0 - 150 CHOLESTEROL 78 mg/dL 0 - 200 ALKALINE PHOSPHATASE 74 U/L 40 - 150 ALT/SGPT 21 U/L 8 - 40 AST/SGOT 23 U/L 5 - 34 TOTAL BILIRUBIN 0.5 mg/dL 0.2 - 1.2 CONJ. BILIRUBIN 0.2 mg/dL 0.0 - 0.5 CARBON DIOXIDE 21 L meq/L 22 - 31 GLUCOSE 130 H mg/dL 72 - 99 HDL(New) 35 L mg/dL Ref: >=40 CALCULATED LDL 11 mg/dL EGFR (CKD-EPI 2020) 51 HGA1C 7.0 H % 4.0 - 6.0 WBC 6.8 10*3/uL 3.6 - 11.2 RBC 4.65 10*6/uL 4.10 - 5.70 HGB 14.3 g/dL 13.1 - 16.8 HCT 42.3 % 38.2 - 48.4 MCV 91.0 fL 80.0 - 100.0 MCH 30.8 pg 27.0 - 34.0 MCHC 33.8 g/dL 33.0 - 36.0 RDW 11.5 L % 11.8 - 15.1 PLT 323 10*3/uL 150 - 400 MPV 9.7 fL 7.5 - 11.2 NEUTROPHILS, AUTO % 63.5 % LYMPHOCYTES, AUTO % 16.2 % MONOCYTES, AUTO % 7.8 % EOSINOPHILS, AUTO % 11.5 % BASOPHILS, AUTO % 0.9 % IMMATURE GRANS, AUTO % 0.1 % NEUTROPHILS, ABSOLUTE 4.32 10*3/uL 2.10 - 8.00 LYMPHOCYTES, ABSOLUTE 1.10 10*3/uL 0.77 - 4.50 MONOCYTES, ABSOLUTE 0.53 10*3/uL 0.19 - 0.8 EOSINOPHILS, ABSOLUTE 0.78 H 10*3/uL 0.00 - 0.60 BASOPHILS, ABSOLUTE 0.06 10*3/uL 0.00 - 0.20 IMMATURE GRANS, AUTO ABS 0.01 10*3/uL 0.00 - 0.05 URINE COLOR Yellow Ref: Yellow APPEARANCE Clear Ref: Clear SPECIFIC GRAVITY 1.018 1.005 - 1.029 U.PH 6.5 5.0 - 8.0 U.PROTEIN Negative mg/dL Ref: Negative URINE GLUCOSE (PB-MA-EV) >1000 H mg/dL Ref: Negative U.KETONES Negative mg/dL Ref: Negative U.BILIRUBIN Negative mg/dL Ref: Negative U.BLOOD Negative mg/dL Ref: Negative U.NITRITE Negative mg/dL Ref: Negative U.LEUK.EST. Negative Tomy/uL Ref: Negative UROBILINOGEN Normal mg/dL 0.1 - 1.0 uACR (PB-MA) 28.8 mg/g Ref: <=30 URINE ALBUMIN (MA) 1.5 mg/dL CREATININE (URINE)(MA) 52 mg/dL 1. eGFR 51. slightly lower than before. continue good hydration. 2. a1c 7.0% stable. 3. rest of labs stable. /es/ LORY LUU Signed: 02/01/2025 06:37 Receipt Acknowledged By: 02/01/2025 13:08 /es/ LEX Ruvalcaba [facility] LEX --- Original Document --- 01/31/25 VISHAL NOTE MA: JAN 31, 2025 Reason for visit / Chief Complaints: (x) For f/u of med problems () Annual visit () Meds refill () Acute visit History of Present Illness: (x) Patient came alone today. () Patient is accompanied by [], son[], daughter[] or other[] today. verbally agrees for her/him to be present during medical evaluation. () Self Directed Care Guides provided and explained. KAT ESCOBAR, 64yo NOT OR MALE came in today for routine FU. he was Dr. Maciel's pt. transferred from [facility] after her custodial. 03/30/24, a-flutter, s/p ablation at [facility] by Dr. Franklin Rivera and Freddy Levin. Otherwise, the has been doing well with no ER visit or hospitalizations since last visit. 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 NON-VA CARE: PCP: Dr. Tico Chane[place] Neurology: Dr Kuldip Duong, [facility] CC-ENT: Dr. Luis Santiago, [facility] endocrinology: Sharon Clements [employer]. NURSING NOTE SEEN Service Connected: Yes (80%) ALLERGIES:PREDNISONE MEDICATIONS: () Has a list () Brought meds bottles today () Not taking medications (x) Aware medications he/she takes () Needs renewals Active Outpatient Medications Active Outpatient Medications (including Supplies): Active Non-VA Medications Status 1) Non-VA ASPIRIN 81MG EC TAB 81MG BY MOUTH ONCE A DAY ACTIVE 2) Non-VA CETIRIZINE HCL 10MG TAB 10MG BY MOUTH ONCE A DAY ACTIVE 3) Non-VA CLOPIDOGREL BISULFATE 75MG TAB 75MG BY MOUTH ONCE A ACTIVE DAY 4) Non-VA DULAGLUTIDE 3MG/0.5ML INJ PEN 3MG UNDER THE SKIN ACTIVE EVERY WEEK Indication: FOR DIABETES 5) Non-VA EMPAGLIFLOZIN 25MG TAB 25MG BY MOUTH ONCE A DAY ACTIVE Indication: FOR DIABETES 6) Non-VA GALCANEZUMAB-GNLM 120MG/ML INJ,PEN,1ML 120MG/1ML (1 ACTIVE PEN) UNDER THE SKIN 7) Non-VA MAGNESIUM OXIDE 400MG TAB 400MG BY MOUTH ACTIVE 8) Non-VA METFORMIN HCL 1000MG TAB 1000MG BY MOUTH TWICE A DAY ACTIVE WITH MEALS 9) Non-VA MONTELUKAST NA 10MG TAB 10MG BY MOUTH EVERY EVENING ACTIVE 10) Non-VA MULTIVITAMIN CAP/TAB 1 TABLET BY MOUTH ONCE A DAY ACTIVE 11) Non-VA RIMEGEPANT 75MG ORAL DISINTEGRATING TAB 75MG UNDER ACTIVE THE TONGUE TOXIC HABITS: TOBACCO: USER ()YES (x)NO, never used nicotine products ALCOHOL: USER (x)YES ()NO, 2 briana a month ILLICIT DRUGS: ()YES (x)NO REVIEW OF SYSTEMS: GENERAL: No fevers, sweats, shakes, chills, weight loss/gain HEENT: No diplopia, blurry vision, epistaxis or tinnitus, hearing loss CARDIOVASCULAR: No chest pain, dyspnea, edema, palpitations PULMONARY: No wheezing, cough, or night sweats GASTROINTESTINAL: No nausea, vomiting, diarrhea, abdominal pain, bleeding GENITOURINARY: No dysuria, hematuria, frequency, incontinence MUSCULOSKELETAL: No claudication, pain, paresthesia, back pain ENDOCRINOLOGIC: No excessive thirst, urination, heat or cold intolerance NEUROLOGIC: No seizures, dizziness, syncope, loss consciousness SKIN: No lesions, rash, lumps, pruritus PSYCH: No sleep difficulty, mood changes, anxiety, suicidal ideas PHYSICAL EXAM: (x) Patient agrees to have a physical exam while at clinic today. () Use of a St[employer] Installation Mechanic has been necessary during some parts of this exam. VITAL SIGNS: BP: 126/80 P: 74 R: 18 WT: 132.1 T: 96.8 HT: 65 BMI:22.03 PO2:98% (x) Alert; responding appropriately, in no acute distress (x) Comfortable at rest, oriented. (x) Well developed, well nourished, well hydrated () In wheelchair () Using a cane[] or walker[] () Using Oxygen []L/min GENERAL: alert, responding appropriately, not in distress NECK: supple, no JVD, no carotid bruits, no masses LUNGS: symmetrical expansion, clear breath sounds, no wheezes, rhonchi or crackles appreciated HEART: regular rate and rhythm, normal S1 and S2 ABD: soft, non-tender, positive bowel sounds no rebound or guarding, no palpable mass EXT: no leg edema SKIN: no dry skin, masses or lumps NEURO: normal balance and walking LABS: (x) TO BE DONE TODAY, PATIENT WILL BE CONTACTED FOR ABNORMAL RESULTS. () NOTED AND SIGNIFICANT RESULTS DISCUSSED WITH PATIENT COPY GIVEN TO PATIENT () OUTSIDE LABS RESULTS BROUGHT BY PATIENT TO CLINIC ASSESSEMENT AND PLAN OF CARE: * Medical Conditions Addressed Today: ALLERGIC RHINITIS sees ENT DR Mick Santiago, also for dizziness on non VA cetirizine 10mg daily MIGRAINE on non VA Zavzpret (zavegepant) nasal spray as needed, rarely use. on non VA Nurtec OTD (rimpegepant) as needed on non VA Qulipta (atogepant) 60mg every day on non VA magnesium 400mg daily on non VA vit B complex daily sees non VA neurology regularly. 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 L vertebral artery has stenosis at its ostium, 75% treated with stent. on non VA clopidogrel 75mg daily after stent to improve brain blood flow HTN on non VA carvedilol 3.125mg BID on non VA losartan 25mg a day 01/31/25, BP 126/80 HYPERLIPIDEMIA on non VA Livalo (pitavastatin) 2mg on non VA Repatha (evolocumab) 140mg sc every 2 wks since fall 2023. A-FLUTTER 03/30/24, s/p ablation at [facility] by Dr. Franklin Rivera and Freddy Kendrick. on non VA carvedilol 25mg BID on non VA clopidogrel 75mg a day DM TYPE 2 DM since 1999. on CGM Free Style Anusha on non VA empagliflozin 25mg daily on non VA metformin 1000mg BID on Trulicity (dulaglutide) weekly sees non VA endocrinology 01/31/25, dulaglutide since 2015 or so and recently dose was reduced due to good controlled DM and low appetite. HEARING LOSS has MG from [facility], in 2015, news in 01/2022 has a right TM tube INSOMNIA on non VA zolpidem 5mg as needed H/O CATARACT 2017, s/p cataract surgery on both eyes * Other Medical Conditions OF Relevance Not Addressed Today: PLAN OF CARE HAS BEEN DISCUSSED WITH PATIENT, INCLUDING EXPECTED THERAPEUTIC BENEFITS AND POTENTIAL SIDE EFFECTS OF MEDICATIONS. PATIENT ACKNOWLEDGED UNDERSTANDING AND IS AGREABLE WITH ABOVE PLAN OF CARE. MEDICINE RECONCILIATION DONE RETURN TO CLINIC: [12] Months (x)with labs ()without labs ()as previously scheduled Spent [45] minutes for today's visit (direct care, chart review, and documentation). /yara/ LORY LUU Signed: 01/31/2025 09:50 LORY LUU [facility] Jan 31, 2025 09:59 AM EDUCATION NOTE: LOCAL TITLE: PATIENT EDUCATION DOCUMENTATION [place] STANDARD TITLE: EDUCATION NOTE DATE OF NOTE: JAN 31, 2025@09:59 ENTRY DATE: JAN 31, 2025@09:59:32 AUTHOR: KARTHIKEYAN PELAEZ COSIGNER: URGENCY: STATUS: COMPLETED Learning barriers and adjustments for barriers noted. No change Readiness to Learn The patient/caregiver is ready to learn and accepts patient education Based upon patient/family knowledge or experience with disease process or change in condition the following education was provided to: Patient The Patient was provided education on the following topics: Medication Level of Understanding: Good NO new medication(s) started Patient given copy of Medication Reconciliation from provider Tests, Consults and Procedures Level of Understanding: Good Labs ordered Patient instructed on fasting lab Patient instructed to complete release of information form if they would like a copy of lab results or access them 7 days after drawn through [employer] Effectiveness of education/outcome Patient/Caregiver verbalizes that education of above topics is understood through teach-back method (able to repeat back accurate content in their own words) RTC:01/31/26 labs:01/31/26 /yara/ LEX Ruvalcaba [facility] DEVELOPMENT ADMINISTRATOR Signed: 01/31/2025 10:01 KARTHIKEYAN PELAEZ [facility] Jan 31, 2025 09:49 AM MEDICATION MGT NOTE: LOCAL TITLE: MEDICATION RECONCILIATION (REVISED) MA STANDARD TITLE: MEDICATION MGT NOTE DATE OF NOTE: JAN 31, 2025@09:49 ENTRY DATE: JAN 31, 2025@09:49:54 AUTHOR: LORY LUU EXP COSIGNER: URGENCY: STATUS: COMPLETED JAN 31, 2025 KAT PEREZ LUZ [address] [place] [address] The Essential Med List for Review which includes the patient's active and pending VA prescriptions and if applicable, remote VA prescriptions, non-VA prescriptions, and discontinued VA prescriptions within the last 90 days and known allergies including local and remote allergies have been reviewed. Yes Allergies/ADR LOCAL AND REMOTE: FACILITY ALLERGY/ADR -------- [facility] [facility] [place] NO KNOWN ALLERGIES The below is the most current list of medications from all sources that the should be taking: Active Outpatient Medications (including Supplies): Active Non-VA Medications Status 1) Non-VA ASPIRIN 81MG EC TAB 81MG BY MOUTH ONCE A DAY ACTIVE 2) Non-VA CETIRIZINE HCL 10MG TAB 10MG BY MOUTH ONCE A DAY ACTIVE 3) Non-VA CLOPIDOGREL BISULFATE 75MG TAB 75MG BY MOUTH ONCE A ACTIVE DAY 4) Non-VA DULAGLUTIDE 3MG/0.5ML INJ PEN 3MG UNDER THE SKIN ACTIVE EVERY WEEK Indication: FOR DIABETES 5) Non-VA EMPAGLIFLOZIN 25MG TAB 25MG BY MOUTH ONCE A DAY ACTIVE Indication: FOR DIABETES 6) Non-VA GALCANEZUMAB-GNLM 120MG/ML INJ,PEN,1ML 120MG/1ML (1 ACTIVE PEN) UNDER THE SKIN 7) Non-VA MAGNESIUM OXIDE 400MG TAB 400MG BY MOUTH ACTIVE 8) Non-VA METFORMIN HCL 1000MG TAB 1000MG BY MOUTH TWICE A DAY ACTIVE WITH MEALS 9) Non-VA MONTELUKAST NA 10MG TAB 10MG BY MOUTH EVERY EVENING ACTIVE 10) Non-VA MULTIVITAMIN CAP/TAB 1 TABLET BY MOUTH ONCE A DAY ACTIVE 11) Non-VA RIMEGEPANT 75MG ORAL DISINTEGRATING TAB 75MG UNDER ACTIVE THE TONGUE TO HELP YOU UNDERSTAND YOUR DRUG LIST ACTIVE ...means that you are presently taking these meds. PENDING ..means that the medication has just been renewed, or, just ordered. HOLD .....means that the medication is active on your list, but will not be processed until pharmacy receives further instructions from you or your doctor to proceed with filling the prescription for delivery. NON-VA ...means you are getting the medication from somewhere besides the [place]. MEDICATIONS: A prescription which is too old to fill. This does not refer to the expiration date of the medication in the container The patients medication profile has been reviewed. Medications and/or dosage may vary upon arrival in the mail. Please read and follow the directions on your bottles carefully. MEDICATION PATIENT EDUCATION: It is very important for your safety that you keep an accurate medication list, which includes your vitamins, herbals, and medications purchased from an outside pharmacy. Make sure to bring this medication list with you at all times. It is your Responsibility to update your list when medications are changed, added or discontinued and provide this updated list to all providers. Medication Changes No changes are indicated as a result of this visit. A copy of the updated medication list was given to the patient and/or caregiver that included the medications added, changed, and/or discontinued today. Medication list pertinent to this visit reviewed with patient. No discrepancies were identified Future Appointments:02/06/2025 13:00 MA-AUDIO JOEY 3 Instruction (optional): /yara/ LORY LUU Signed: 01/31/2025 09:50 LORY LUU [facility] Jan 31, 2025 09:08 AM NURSING OUTPATIENT NOTE: LOCAL TITLE: CLINIC NURSING INTERVIEW [place] STANDARD TITLE: NURSING OUTPATIENT NOTE DATE OF NOTE: JAN 31, 2025@09:08 ENTRY DATE: JAN 31, 2025@09:09:03 AUTHOR: KARTHIKEYAN PELAEZ COSIGNER: URGENCY: STATUS: COMPLETED PATIENT DEMOGRAPHICS: Sex: MALE Date of : Jun Patient race: Patient ethnicity: NOT OR B/P:126/80 (01/31/2025 09:08) P: 74 (01/31/2025 09:08) T: 96.8 F [36.0 C] (01/31/2025 09:08) R: 18 (01/31/2025 09:08) Pain: 0 (01/31/2025 09:08) PO: 98% (01/31/2025 09:08) WEIGHT: 132.1 lb [59.92 kg] (01/31/2025 09:08) Patient educated on pain scale. MEDICATIONALLERGIES/INTOLER ANCES: PREDNISONE _ Reason for visit: Follow up of medical problems Do you take Aspirin at home? No *Stress Assessment What are the areas of your life that have caused stress in the last 6 months? Not applicable - patient reports no stressors in the last 6 months Last Co-Manage Care note: CO-MANAGE CARE NOT COMPLETED WITHIN 6 MONTHS [CMCN] BELOW INFORMATION IS INSERTED INTO CO-MANAGED CARE-IA NOTE Patient has requested to continue getting medical care outside the [place]. Outside Primary Care Provider Name/Ofc Info Dr. Tico Hernandez [place] Outside Specialty Provider 1 Name/Spec/Ofc Info Dr. Canchola Murthycardiology Outside Specialty Provider 2 Name/Spec/Ofc Info Dr. Sharon Clements Endocrinology Outside Specialty Provider 3 Name/Spec/Ofc Info Dr. Duong Neurology [END*] DME Has there been any change in the Veterans mobility status? No Does use DME or assistive device for mobility? No PERSONAL HEALTH PLAN [END*] [place] Fall Risk Opt Assessment : Nursing Fall Risk Outpatient Assessment Patient has not had a fall within the past 12 months but is determined to be a fall risk patient. Reason: had a migraine headache Finished playing pickle ball fell to the ground.had taken an extra dose of medication. Patient does not feel unsteady when walking or standing. when having a migraine headache Patient does not worry about falling. Pneumococcal Conjugate Vaccine (PCV15/PCV20/PCV21) - L,N,P,PH,U: Refuses PCV vaccine Immunization: PNEUMOCOCCAL CONJUGATE, UNSPECIFIED FORMULATION Refusal Reason: PATIENT DECISION Patient refuses all immunization(s) in the PneumoPCV group Comment: wanting to check with non VA provider Date Documented: 01/31/25 09:14 Pneumococcal PPSV23 (Pneumovax) - L,N,P,PH,U: The patient declines to receive the recommended dose of PPSV23 vaccine. Immunization: PNEUMOCOCCAL POLYSACCHARIDE PPV23 Refusal Reason: PATIENT DECISION Patient refuses all immunization(s) in the PneumoPPV group Comment: wanting to check with Non Varovider Date Documented: 01/31/25 09:15 Homelessness/Food Insecurity Screen - DI,L,N,P,PH,PS,S,U: In the past 2 months, have you been living in stable housing that you own, rent, or stay in as part of a household? Yes - Living in stable housing. Are you worried or concerned that in the next 2 months you may NOT have stable housing that you own, rent, or stay in as part of a household? No - Not worried about housing near future The reports the following: Within the past 12 months, you worried whether your food would run out before you got money to buy more. Never true Within the past 12 months, the food you bought just didn't last and you didn't have money to get more. Never true Depression Screening - V: Perform PHQ-2 A PHQ-2 screen was performed. The score was 0 which is a negative screen for depression. Over the past two weeks, how often have you been bothered by the following problems? 1. Little interest or pleasure in doing things Not at all 2. Feeling down, depressed, or hopeless Not at all PAVE Foot Check - L,N,P,PH,PO,PT,U: A complete foot check was completed at this encounter. VISUAL INSPECTION: Includes inspection for skin breaks, deformity, erythema, trauma, pallor on elevation, dependent rubor, nail deformities, extensive callus and pitting edema. Visual exam results: Normal PEDAL PULSES: Includes palpation of dorsalis and posterior tibial pulses and signs/symptoms of vascular compromise like pain, pallor, paresthesia or paralysis. Present (even if diminished) SENSORY CHECK: Includes 10 gram Monofilament (Princ[place]-Jak) test of sensation. Intact (Greater than or equal to 80% of sites checked) Abnormal (Less than 80% of sites checked): Intact LOW-RISK: LOW RISK INFORMATION PROVIDED: 1. Advised patient not to walk barefoot. 2. Explained the importance of daily foot checks for changes. 3. Stressed the importance of daily foot hygiene, including bathing and complete drying. Alcohol Use Screen (AUDIT-C) - V: Alcohol Screen: SCREEN FOR ALCOHOL (AUDIT-C) An alcohol screening test (AUDIT-C) was negative (score=2). 1. How often did you have a drink containing alcohol in the past year? Consider a drink to be a 12 ounce can or bottle of regular beer, 8 ounces of malt liquor, a 5 ounce glass of table wine, or a 1.5 ounce shot of liquor (like scotch, gin, or vodka). Two to four times a month 2. How many drinks containing alcohol did you have on a typical day when you were drinking in the past year? One or two drinks 3. How often did you have six or more drinks on one occasion in the past year? Never Suicide Screen - V: C-SSRS Screening Kidder Suicide Severity Rating Scale (C-SSRS) screener 1. Over the past month, have you wished you were or wished you could go to sleep and not wake up? No 2. Over the past month, have you had any actual thoughts of killing yourself? No 3. Over the past month, have you been thinking about how you might do this? Response not required due to responses to other questions. 4. Over the past month, have you had these thoughts and had some intention of acting on them? Response not required due to responses to other questions. 5. Over the past month, have you started to work out or worked out the details of how to kill yourself? Response not required due to responses to other questions. 6. If yes, at any time in the past month did you intend to carry out this plan? Response not required due to responses to other questions. 7. In your lifetime, have you ever done anything, started to do anything, or prepared to do anything to end your life (for example, collected pills, obtained a gun, gave away valuables, went to the roof but didn't jump)? No 8. If YES, was this within the past 3 months? Response not required due to responses to other questions. /yara/ LEX Ruvalcaba [facility] DEVELOPMENT ADMINISTRATOR Signed: 01/31/2025 09:18 [facility]EL[facility]Z [facility] Jan 31, 2025 07:28 AM PRIMARY CARE NOTE: LOCAL TITLE: VISHAL [place] STANDARD TITLE: PRIMARY CARE NOTE DATE OF NOTE: JAN 31, 2025@07:28 ENTRY DATE: JAN 31, 2025@07:28:23 AUTHOR: LORY LUU EXP COSIGNER: URGENCY: STATUS[facility] ADDENDA JAN 31, 2025 Reason for visit / Chief Complaints: (x) For f/u of med problems () Annual visit () Meds refill () Acute visit History of Present Illness: (x) Patient came alone today. () Patient is accompanied by [], son[], daughter[] or other[] today. verbally agrees for her/him to be present during medical evaluation. () Self Directed Care Guides provided and explained. KAT ESCOBAR, 64yo NOT OR MALE came in today for routine FU. he was Dr. Maciel's pt. transferred from [facility] after her custodial. 03/30/24, a-flujaveder, s/p ablation at [facility] by Dr. Franklin Rivera and Freddy Levin. Otherwise, the has been doing well with no ER visit or hospitalizations since last visit. 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 NON-VA CARE: PCP: Dr. Tico Cheatham [place] Neurology: Dr Kuldip Duong, [facility] CC-ENT: Dr. Luis Santiago, [facility] endocrinology: Sharon Clements [employer]. NURSING NOTE SEEN Service Connected: Yes (80%) ALLERGIES:PREDNISONE MEDICATIONS: () Has a list () Brought meds bottles today () Not taking medications (x) Aware medications he/she takes () Needs renewals Active Outpatient Medications Active Outpatient Medications (including Supplies): Active Non-VA Medications Status 1) Non-VA ASPIRIN 81MG EC TAB 81MG BY MOUTH ONCE A DAY ACTIVE 2) Non-VA CETIRIZINE HCL 10MG TAB 10MG BY MOUTH ONCE A DAY ACTIVE 3) Non-VA CLOPIDOGREL BISULFATE 75MG TAB 75MG BY MOUTH ONCE A ACTIVE DAY 4) Non-VA DULAGLUTIDE 3MG/0.5ML INJ PEN 3MG UNDER THE SKIN ACTIVE EVERY WEEK Indication: FOR DIABETES 5) Non-VA EMPAGLIFLOZIN 25MG TAB 25MG BY MOUTH ONCE A DAY ACTIVE Indication: FOR DIABETES 6) Non-VA GALCANEZUMAB-GNLM 120MG/ML INJ,PEN,1ML 120MG/1ML (1 ACTIVE PEN) UNDER THE SKIN 7) Non-VA MAGNESIUM OXIDE 400MG TAB 400MG BY MOUTH ACTIVE 8) Non-VA METFORMIN HCL 1000MG TAB 1000MG BY MOUTH TWICE A DAY ACTIVE WITH MEALS 9) Non-VA MONTELUKAST NA 10MG TAB 10MG BY MOUTH EVERY EVENING ACTIVE 10) Non-VA MULTIVITAMIN CAP/TAB 1 TABLET BY MOUTH ONCE A DAY ACTIVE 11) Non-VA RIMEGEPANT 75MG ORAL DISINTEGRATING TAB 75MG UNDER ACTIVE THE TONGUE TOXIC HABITS: TOBACCO: USER ()YES (x)NO, never used nicotine products ALCOHOL: USER (x)YES ()NO, 2 briana a month ILLICIT DRUGS: ()YES (x)NO REVIEW OF SYSTEMS: GENERAL: No fevers, sweats, shakes, chills, weight loss/gain HEENT: No diplopia, blurry vision, epistaxis or tinnitus, hearing loss CARDIOVASCULAR: No chest pain, dyspnea, edema, palpitations PULMONARY: No wheezing, cough, or night sweats GASTROINTESTINAL: No nausea, vomiting, diarrhea, abdominal pain, bleeding GENITOURINARY: No dysuria, hematuria, frequency, incontinence MUSCULOSKELETAL: No claudication, pain, paresthesia, back pain ENDOCRINOLOGIC: No excessive thirst, urination, heat or cold intolerance NEUROLOGIC: No seizures, dizziness, syncope, loss consciousness SKIN: No lesions, rash, lumps, pruritus PSYCH: No sleep difficulty, mood changes, anxiety, suicidal ideas PHYSICAL EXAM: (x) Patient agrees to have a physical exam while at clinic today. () Use of a Stoker Installation Mechanic has been necessary during some parts of this exam. VITAL SIGNS: BP: 126/80 P: 74 R: 18 WT: 132.1 T: 96.8 HT: 65 BMI:22.03 PO2:98% (x) Alert; responding appropriately, in no acute distress (x) Comfortable at rest, oriented. (x) Well developed, well nourished, well hydrated () In wheelchair () Using a cane[] or walker[] () Using Oxygen []L/min GENERAL: alert, responding appropriately, not in distress NECK: supple, no JVD, no carotid bruits, no masses LUNGS: symmetrical expansion, clear breath sounds, no wheezes, rhonchi or crackles appreciated HEART: regular rate and rhythm, normal S1 and S2 ABD: soft, non-tender, positive bowel sounds no rebound or guarding, no palpable mass EXT: no leg edema SKIN: no dry skin, masses or lumps NEURO: normal balance and walking LABS: (x) TO BE DONE TODAY, PATIENT WILL BE CONTACTED FOR ABNORMAL RESULTS. () NOTED AND SIGNIFICANT RESULTS DISCUSSED WITH PATIENT COPY GIVEN TO PATIENT () OUTSIDE LABS RESULTS BROUGHT BY PATIENT TO CLINIC ASSESSEMENT AND PLAN OF CARE: * Medical Conditions Addressed Today: ALLERGIC RHINITIS sees ENT DR Mick Santiago, also for dizziness on non VA cetirizine 10mg daily MIGRAINE on non VA Zavzpret (zavegepant) nasal spray as needed, rarely use. on non VA Nurtec OTD (rimpegepant) as needed on non VA Qulipta (atogepant) 60mg every day on non VA magnesium 400mg daily on non VA vit B complex daily sees non [place] neurology regularly. 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 L vertebral artery has stenosis at its ostium, 75% treated with stent. on non VA clopidogrel 75mg daily after stent to improve brain blood flow HTN on non VA carvedilol 3.125mg BID on non VA losartan 25mg a day 01/31/25, BP 126/80 HYPERLIPIDEMIA on non VA Livalo (pitavastatin) 2mg on non VA Repatha (evolocumab) 140mg sc every 2 wks since fall 2023. A-FLUTTER 03/30/24, s/p ablation at [facility] by Dr. Franklin Rivera and Freddy Kendrick. on non VA carvedilol 25mg BID on non VA clopidogrel 75mg a day DM TYPE 2 DM since 1999. on CGM Free Style Anusha on non VA empagliflozin 25mg daily on non VA metformin 1000mg BID on Trulicity (dulaglutide) weekly sees non [place] endocrinology 01/31/25, dulaglutide since 2015 or so and recently dose was reduced due to good controlled DM and low appetite. HEARING LOSS [facility], in [facility], news in 01/2022 has a right TM tube INSOMNIA on non VA zolpidem 5mg as needed H/O CATARACT 2018, s/p cataract surgery on both eyes * Other Medical Conditions OF Relevance Not Addressed Today: PLAN OF CARE HAS BEEN DISCUSSED WITH PATIENT, INCLUDING EXPECTED THERAPEUTIC BENEFITS AND POTENTIAL SIDE EFFECTS OF MEDICATIONS. PATIENT ACKNOWLEDGED UNDERSTANDING AND IS AGREABLE WITH ABOVE PLAN OF CARE. MEDICINE RECONCILIATION DONE RETURN TO CLINIC: [12] Months (x)with labs ()without labs ()as previously scheduled Spent [45] minutes for today's visit (direct care, chart review, and documentation). /yara/ LORY LUU Signed: 01/31/2025 09:50 02/01/2025 ADDENDUM STATUS: COMPLETED Collection time: Jan 31, 2025@09:53 Test Name Result Units Range --------- ------ ----- ----- FOLATE (STL-MA) >20.0 H ng/mL 7 - 20 TSH 2.579 ulU/mL 0.470 - 5.000 B12 681 pg/mL 213 - 816 VITAMIN D, 25-HYDROXY 52.6 ng/mL 30 - 96 PSA (MA) 1.5 ng/mL 0.0 - 4.0 SODIUM 138 meq/L 136 - 145 POTASSIUM 5.0 meq/L 3.5 - 5 CHLORIDE 104 meq/L 98 - 107 UREA NITROGEN 32 H mg/dL 9.0 - 25.0 CREATININE 1.5 H mg/dL .7 - 1.3 CALCIUM 9.6 mg/dL 8.4 - 10.4 MAGNESIUM 2.4 mg/dL 1.6 - 2.6 PROTEIN 6.9 g/dL 6.0 - 8.6 ALBUMIN 4.5 g/dL 3.4 - 5.0 TRIGLYCERIDE 162 H mg/dL 0 - 150 CHOLESTEROL 78 mg/dL 0 - 200 ALKALINE PHOSPHATASE 74 U/L 40 - 150 ALT/SGPT 21 U/L 8 - 40 AST/SGOT 23 U/L 5 - 34 TOTAL BILIRUBIN 0.5 mg/dL 0.2 - 1.2 CONJ. BILIRUBIN 0.2 mg/dL 0.0 - 0.5 CARBON DIOXIDE 21 L meq/L 22 - 31 GLUCOSE 130 H mg/dL 72 - 99 HDL(New) 35 L mg/dL Ref: >=40 CALCULATED LDL 11 mg/dL EGFR (CKD-EPI 2020) 51 HGA1C 7.0 H % 4.0 - 6.0 WBC 6.8 10*3/uL 3.6 - 11.2 RBC 4.65 10*6/uL 4.10 - 5.70 HGB 14.3 g/dL 13.1 - 16.8 HCT 42.3 % 38.2 - 48.4 MCV 91.0 fL 80.0 - 100.0 MCH 30.8 pg 27.0 - 34.0 MCHC 33.8 g/dL 33.0 - 36.0 RDW 11.5 L % 11.8 - 15.1 PLT 323 10*3/uL 150 - 400 MPV 9.7 fL 7.5 - 11.2 NEUTROPHILS, AUTO % 63.5 % LYMPHOCYTES, AUTO % 16.2 % MONOCYTES, AUTO % 7.8 % EOSINOPHILS, AUTO % 11.5 % BASOPHILS, AUTO % 0.9 % IMMATURE GRANS, AUTO % 0.1 % NEUTROPHILS, ABSOLUTE 4.32 10*3/uL 2.10 - 8.00 LYMPHOCYTES, ABSOLUTE 1.10 10*3/uL 0.77 - 4.50 MONOCYTES, ABSOLUTE 0.53 10*3/uL 0.19 - 0.8 EOSINOPHILS, ABSOLUTE 0.78 H 10*3/uL 0.00 - 0.60 BASOPHILS, ABSOLUTE 0.06 10*3/uL 0.00 - 0.20 IMMATURE GRANS, AUTO ABS 0.01 10*3/uL 0.00 - 0.05 URINE COLOR Yellow Ref: Yellow APPEARANCE Clear Ref: Clear SPECIFIC GRAVITY 1.018 1.005 - 1.029 U.PH 6.5 5.0 - 8.0 U.PROTEIN Negative mg/dL Ref: Negative URINE GLUCOSE (PB-MA-EV) >1000 H mg/dL Ref: Negative U.KETONES Negative mg/dL Ref: Negative U.BILIRUBIN Negative mg/dL Ref: Negative U.BLOOD Negative mg/dL Ref: Negative U.NITRITE Negative mg/dL Ref: Negative U.LEUK.EST. Negative Tomy/uL Ref: Negative UROBILINOGEN Normal mg/dL 0.1 - 1.0 uACR (PB-MA) 28.8 mg/g Ref: <=30 URINE ALBUMIN (MA) 1.5 mg/dL CREATININE (URINE)(MA) 52 mg/dL 1. eGFR 51. slightly lower than before. continue good hydration. 2. a1c 7.0% stable. 3. rest of labs stable. /yara/ LORY LUU Signed: 02/01/2025 06:37 Receipt Acknowledged By: * AWAITING SIGNATURE * HARRISON MILLIGAN,LORY MAIER [facility]
--- OUTSIDE RECORDS SUMMARY | 2025-04-15 12:09 | XMS_ITS | Continuity of Care Document ---
Author Name [facility] Organization [facility] Care Team Providers Care Neonatal Social Worker Name Role Phone [facility] Unavailable Unavailable Problems Combined list of problems from Department of Defense and Veterans Affairs facilities. It does not include entries that were removed or entered in error. Problem Status Onset Date Problem Type Date of Resolution Comments Source Allergic Rhinitis ([facility] [id number]) Active Condition [facility] Atrial flutter Active Condition Jan Entered By: LORY LUU Comment: 03/30/24, s/p ablation at [facility] Diabetes Mellitus Type 1 ([facility] [id number]) Active Condition [facility] DM II Active [facility] - Hypertension ([facility] [id number]) Active Condition [facility] Hyperlipidemia ([facility] [id number]) Active Condition [facility] Meniere's disease Active Condition [facility] Migraine Active Condition [facility] Personal History of Transient Ischemic Attack (Tia), and Cerebral Infarction wit Active Condition [facility] SENSORINEURAL HEARING LOSS, BILATERAL Active [facility] SENSORINEURAL HEARING LOSS, UNILATERAL Active Condition [facility] Vertebral artery stenosis Active Condition Jan 10, 2025 Entered By: LORY LUU Comment: 11/09/20, cerebral angiogram at [facility] - 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 The left vertebral artery has stenosis at its ostium, 75% treated with stent. [facility] Acute serous otitis media Inactive Condition 01/10/2025 [facility] Acute serous otitis media of right ear Inactive Condition 01/10/2025 [facility] Diagnosis: ICD-10-CM H90.3 Sensorineural hearing loss, bilateral Active Diagnosis [facility] Diagnosis: ICD-10-CM H81.01 Meniere's disease, right ear Active Diagnosis [facility] Diagnosis: ICD-10-CM R00.2 Palpitations Active Diagnosis [facility] Medications Combined list of outpatient medications from Department of Defense and Veterans Affairs facilities.Medications provided include 1) outpatient medications from the last 15 months, and 2) patient-reported medications. Medication Details Route Status Patient Instructions Prescription Expires Prescription Number Last Dispense Date Ordering Provider Order Date Order Qty Source ASPIRIN 81MG TAB,EC TAKE ONE TABLET BY MOUTH ONCE A DAY ORAL ACTIVE COLON,LUKE Alanna 2021 [facility] ASPIRIN 81MG TAB,EC TAKE ONE TABLET BY MOUTH EVERY DAY ORAL ACTIVE QURESHI,WILL VENANCIO P 2009 [facility] ATORVASTATI N [place] 40MG TAB TAKE ONE-HALF TABLET BY MOUTH EVERY EVENING ORAL ACTIVE QURESHI,WILL [facility] P 2009 [facility] CETIRIZINE HCL 10MG TAB TAKE ONE TABLET BY MOUTH ONCE A DAY ORAL ACTIVE COLON,LUKE Alanna 2021 [facility] CLOPIDOGREL BISULFATE 75MG TAB TAKE ONE TABLET BY MOUTH ONCE A DAY ORAL ACTIVE COLON,LUKE 2021 [facility] CLOPIDOGREL BISULFATE 75MG TAB TAKE ONE TABLET BY MOUTH EVERY DAY ORAL ACTIVE QURESHI,WILL [facility] P 2009 [facility] DULAGLUTIDE 3MG/0.5ML INJ,SOLN,PE N INJECT 3MG UNDER THE SKIN EVERY WEEK SUBCUT ANEOUS ACTIVE COLON,LUKE Alanna 2022 [facility] EMPAGLIFLOZ IN 25MG TAB TAKE ONE TABLET BY MOUTH ONCE A DAY ORAL ACTIVE COLON,LUKE Alanna 2022 [facility] EVOLOCUMAB 140MG/ML INJ,PEN,1ML INJECT 140 MG/1 ML UNDER THE SKIN SUBCUT ANEOUS ACTIVE JODEE LUU 2024 [facility] FEXOFENADIN E HCL 180MG TAB TAKE ONE TABLET BY MOUTH EVERY DAY ORAL ACTIVE QURESHI,WILL [facility] P 2009 [facility] GALCANEZUMA B-GNLM 120MG/ML INJ,PEN,1ML INJECT 120MG/1M L (1 PEN) UNDER THE SKIN SUBCUT ANEOUS ACTIVE COLON,LUKE Alanna 2021 [facility] LOSARTAN 50MG TAB TAKE ONE-HALF TABLET BY MOUTH ONCE A DAY ORAL ACTIVE JODEE LUU 2024 [facility] MAGNESIUM OXIDE 400MG TAB TAKE ONE TABLET BY MOUTH ORAL ACTIVE COLON,LUKE Alanna 2021 [facility] METFORMIN HCL 1000MG TAB TAKE ONE TABLET BY MOUTH TWICE A DAY WITH MEALS ORAL ACTIVE COLON,LUKE Alanna 2021 [facility] METFORMIN HCL 1000MG TAB TAKE ONE TABLET BY MOUTH TWICE A DAY ORAL ACTIVE QURESHI,WILL VENANCIO P 2009 [facility] MONTELUKAST NA 10MG TAB TAKE ONE TABLET BY MOUTH EVERY EVENING ORAL ACTIVE COLON,LUKE Alanna 2021 [facility] MULTIVITAMI NS CAP/TAB TAKE ONE TABLET BY MOUTH ONCE A DAY ORAL ACTIVE COLON,LUKE 2021 [facility] NIACIN (EQV-NIASPA N) 500MG TAB,SA TAKE ONE TABLET BY MOUTH AT BEDTIME ORAL ACTIVE QURESHI,WILL VENANCIO P 2009 [facility] RIMEGEPANT 75MG TAB,ORAL DISINTEGRAT ING TAKE ONE TABLET UNDER THE TONGUE SUBLIN GUAL ACTIVE LUKE HORTA Alanna 2021 [facility] RIMEGEPANT 75MG TAB,ORAL DISINTEGRAT ING TAKE ONE TABLET UNDER THE TONGUE SUBLIN GUAL ACTIVE JODEE LUU 2024[facility] SITAGLIPTIN PHOSPHATE 100MG TAB TAKE ONE TABLET BY MOUTH EVERY MORNING ORAL ACTIVE QURESHI,WILL VENANCIO P [address] [facility] ZAVEGEPANT 10MG/SPRAY SOLN,SPRAY, NASAL USE 1 SPRAY INTO ONE NOSTRIL ONLY NASAL ACTIVE JODEE LUU 2024[facility] ZZROSIGLITA ZONE MALEATE 8MG TAB TAKE ONE-HALF TABLET BY MOUTH TWICE A DAY ORAL ACTIVE QURESHI,WILL VENANCIO P 2009 [facility] Allergies, Adverse Reactions, Alerts Combined list of allergies from Department of Defense and Veterans Affairs facilities. It does not include entries that were removed or entered in error. Substance Category Reaction Severity Reaction type Status Date Reported Comments Source PREDNISONE Propensity to adverse reactions to drug (finding) Dizziness active 9 [facility] Immunizations Combined list of available immunizations from the Department of Defense and Veterans Affairs facilities. Immunization Series Date Given Administered By Site Reaction Lot Number CVX Code Drug Honeycomb Blanket Maker Status Comments Source COVID-19 (PFIZER), MRNA, LNP-S, PF, FAVIO-SUCROSE, 30 MCG/0.3 ML (AGES 12+ YEARS) 7 2023 309 complet ed HISTORICA L INFORMATI ON - FROM OTHER [facility] INFLUENZA, ADJUVANTED, TRIVALENT, PF 1 2023 168 complet ed HISTORICA L INFORMATI ON - FROM OTHER [place], [facility] RSV, RECOMBINANT, PROTEIN SUBUNIT RSVPREF, ADJUVANT RECONSTITUTED , 0.5 ML, PF 1 2022 303 complet ed HISTORICA L INFORMATI ON - FROM OTHER [facility] COVID-19 ([facility]), MRNA, LNP-S, PF, FAVIO-SUCROSE, 30 MCG/0.3 ML (AGES 12+ YEARS) 1 2022 309 complet ed HISTORICA L INFORMATI ON - FROM OTHER [place], [facility] INFLUENZA VACCINE, QUADRIVALENT, ADJUVANTED 1 2022 205 complet ed HISTORICA L INFORMATI ON - FROM OTHER [place], [facility] COVID-19 ([facility]), MRNA, LNP-S, BIVALENT, PF, 30 MCG/0.3 ML DOSE 5 2021 300 complet ed HISTORICA L INFORMATI ON - FROM OTHER [place], [facility] INFLUENZA, INJECTABLE, QUADRIVALENT, PRESERVATIVE FREE 1 2021 150 complet ed HISTORICA L INFORMATI ON - FROM OTHER [place], [facility] INFLUENZA, UNSPECIFIED FORMULATION 2021 88 complet ed HISTORICA L INFORMATI ON - FROM PATIENT'S RECALL, [facility] COVID-19 ([facility]), MRNA, LNP-S, PF, 30 MCG/0.3 ML DOSE, FAVIO-SUCROSE (AGES 12+ YEARS) 4 2021 217 complet ed HISTORICA L INFORMATI ON - FROM OTHER [place], [facility] N ZOSTER RECOMBINANT 2 2021 187 complet ed recieved [facility] ZOSTER RECOMBINANT 1 2020 187 complet ed received [facility] INFLUENZA, UNSPECIFIED FORMULATION 2020 88 complet ed [facility] COVID-19 ([facility]), MRNA, LNP-S, PF, 30 MCG/0.3 ML DOSE 3 2020 208 complet ed HISTORICA L INFORMATI ON - FROM OTHER [place], [facility] N INFLUENZA, SEASONAL, INJECTABLE 1 2020 141 complet ed HISTORICA L INFORMATI ON - FROM OTHER [place], [facility] N COVID-19 ([facility]), MRNA, LNP-S, PF, 30 MCG/0.3 ML DOSE 2 2020 208 complet ed HISTORICA L INFORMATI ON - FROM OTHER REGISTRY, [facility] N COVID-19 ([facility]), MRNA, LNP-S, PF, 30 MCG/0.3 ML DOSE 1 2020 208 complet ed HISTORICA L INFORMATI ON - FROM OTHER [place], [facility] N INFLUENZA, INJECTABLE, QUADRIVALENT, PRESERVATIVE FREE 1 2019 150 complet ed HISTORICA L INFORMATI ON - FROM OTHER [place], [facility] N INFLUENZA, INJECTABLE, QUADRIVALENT 1 2017 158 complet ed HISTORICA L INFORMATI ON - FROM OTHER REGISTRY, [facility] INFLU[facility], INJECTABLE, QUADRIVALENT 1 2016 158 complet ed HISTORICA L INFORMATI ON - FROM OTHER [place], [facility] N TDAP [address] [facility] N PNEUMOCOCCAL CONJUGATE PCV 13 1 2016 133 complet ed HISTORICA L INFORMATI ON - FROM OTHER [place], [facility] PNEUMOCOCCAL POLYSACCHARID E PPV23 2016 33 complet ed HISTORICA L INFORMATI ON - FROM OTHER REGISTRY, [facility] N INFLUENZA, UNSPECIFIED FORMULATION 2008 [address] [facility] BHARATH Louis [facility] INFLUENZA (HISTORICAL) 2008 88 complet ed [facility] TDAP 2008 115 complet ed [place] NWS, [facility] N Results Combined list of recent chemistry, hematology and other laboratory results from Department of Defense and Veterans Affairs, ranging from 15 months to all on record, depending upon the facility. Order Name Results Value Reference Range Date Interpretation Specimen Comments Source FOLATE (STL-MA) FOLATE [MASS/VOLU ME] IN SERUM OR PLASMA >20.0ng/ mL 7 - 20 01/31 H Specimen Type: SERUM No comment entered. Ordering Provider: LORY LUU Report Released Date/Time: Jan 31, 2025 09:50 AM Reporting Lab: [place] [address] Performing Lab: [address] MAGNESIU M MAGNESIUM [MASS/VOLU ME] IN SERUM OR PLASMA 2.4 mg/dL 1.6 - 2.6 01/31 Specimen Type: PLASMA No comment entered. Ordering Provider: LORY LUU Report Released Date/Time: Jan 10, 2025 01:22 PM Reporting Lab: [place] [phone] Performing Lab: [address] B12 COBALAMIN (VITAMIN B12) [MASS/VOLU ME] IN SERUM OR PLASMA 681 pg/mL 213 - 816 01/31 Specimen Type: SERUM No comment entered. Ordering Provider: LORY LUU Report Released Date/Time: Jan 10, 2025 01:22 PM Reporting Lab: [address] Performing Lab: [address] VITAMIN D, 25-HYDRO XY 25-HYDROXY VITAMIN D3 [MASS/VOLU ME] IN SERUM OR PLASMA 52.6 ng/mL 30 - 96 01/31 Specimen Type: SERUM No comment entered. Ordering Provider: LORY LUU Report Released Date/Time: Jan 10, 2025 01:22 PM Reporting Lab: [facility] [address] [place] [address] Performing Lab: [address] HGA1C HEMOGLOBIN A1C/HEMOGL OBIN.TOTAL IN BLOOD 7.0 4.0 - 6.0 01/31 H Specimen Type: BLOOD No comment entered. Ordering Provider: LORY LUU Report Released Date/Time: Jan 10, 2025 01:22 PM Reporting Lab: [place] [id number] Performing Lab: [address] URINE ALBUMIN PANEL (MA) ALBUMIN/CR EATININE [MASS RATIO] IN URINE 28.8 mg/g - 30 01/31 Specimen Type: URINE No comment entered. Ordering Provider: LORY LUU Report Released Date/Time: Jan 10, 2025 01:22 PM Reporting Lab: [place] [address] Performing Lab: [address] URINE ALBUMIN PANEL (MA) CREATININE [MASS/VOLU ME] IN URINE 52 mg/dL 01/31 Specimen Type: URINE No comment entered. Ordering Provider: LORY LUU Report Released Date/Time: Jan 10, 2025 01:22 PM Reporting Lab: [address] [phone] Performing Lab: [address] URINE ALBUMIN PANEL (MA) MICROALBUM IN [MASS/VOLU ME] IN URINE 1.5 mg/dL 01/31 Specimen Type: URINE No comment entered. Ordering Provider: LORY LUU Report Released Date/Time: Jan 10, 2025 01:22 PM Reporting Lab: [place] [address] [address] [phone] Performing Lab: [facility] [address] [phone] [facility] BASIC METABOLI C PANEL CREATININE [MASS/VOLU ME] IN SERUM OR PLASMA 1.5 mg/dL .7 - 1.3 01/31 H Specimen Type: PLASMA No comment entered. Ordering Provider: LORY LUU Report Released Date/Time: Jan 10, 2025 01:22 PM Reporting Lab: [facility] [address] [phone] Performing Lab: [facility] [address] [place] [phone] [facility] BASIC METABOLI C PANEL UREA NITROGEN [MASS/VOLU ME] IN SERUM OR PLASMA 32 mg/dL 9.0 - 25.0 01/31 H Specimen Type: PLASMA No comment entered. Ordering Provider: LORY LUU Report Released Date/Time: Jan 10, 2025 01:22 PM Reporting Lab: [facility] [address] [phone] Performing Lab: [facility] [address] [place] [phone] [facility] BASIC METABOLI C PANEL GLUCOSE [MASS/VOLU ME] IN SERUM OR PLASMA 130 mg/dL 72 - 99 01/31 H Specimen Type: PLASMA No comment entered. Ordering Provider: LORY LUU Report Released Date/Time: Jan 10, 2025 01:22 PM Reporting Lab: [facility] [address] [phone] Performing Lab: [facility] [address] [phone] [facility] BASIC METABOLI C PANEL SODIUM [MOLES/VOL UME] IN SERUM OR PLASMA 138 meq/L 136 - 145 01/31 Specimen Type: PLASMA No comment entered. Ordering Provider: LORY LUU Report Released Date/Time: Jan 10, 2025 01:22 PM Reporting Lab: [facility] [address] [phone] Performing Lab: [facility] [address] [phone] [facility] BASIC METABOLI C PANEL POTASSIUM [MOLES/VOL UME] IN SERUM OR PLASMA 5.0 meq/L 3.5 - 5 01/31 Specimen Type: PLASMA No comment entered. Ordering Provider: LORY LUU Report Released Date/Time: Jan 10, 2025 01:22 PM Reporting Lab: [facility] [address] [phone] Performing Lab: [facility] [address] [place] [phone] [facility] BASIC METABOLI C PANEL CHLORIDE [MOLES/VOL UME] IN SERUM OR PLASMA 104 meq/L 98 - 107 01/31 Specimen Type: PLASMA No comment entered. Ordering Provider: LORY LUU Report Released Date/Time: Jan 10, 2025 01:22 PM Reporting Lab: [facility] [address] [place] [phone] Performing Lab: [address] [phone] [facility] BASIC METABOLI C PANEL CARBON DIOXIDE, TOTAL [MOLES/VOL UME] IN SERUM OR PLASMA 21 meq/L 22 - 31 01/31 L Specimen Type: PLASMA No comment entered. Ordering Provider: LORY LUU Report Released Date/Time: Jan 10, 2025 01:22 PM Reporting Lab: [facility] [address] [place] [phone] Performing Lab: [address] [phone] [facility] BASIC METABOLI C PANEL CALCIUM [MASS/VOLU ME] IN SERUM OR PLASMA 9.6 mg/dL 8.4 - 10.4 01/31 Specimen Type: PLASMA No comment entered. Ordering Provider: LORY LUU Report Released Date/Time: Jan 10, 2025 01:22 PM Reporting Lab: [facility] [address] [place] [phone] Performing Lab: [facility] [address] [place] [phone] [facility] BASIC METABOLI C PANEL GLOMERULAR FILTRATION RATE/1.73 SQ M.PREDICTE D [VOLUME RATE/AREA] IN SERUM, PLASMA OR BLOOD BY CREATININE -BASED FORMULA (CKD-EPI 2020) 51 01/31 Specimen Type: PLASMA No comment entered. Ordering Provider: LORY LUU Report Released Date/Time: Jan 10, 2025 01:22 PM Reporting Lab: [place] [phone] Performing Lab: [place] [phone] [place] [address] HEPATIC FUNCTION PANEL (MA) PROTEIN [MASS/VOLU ME] IN SERUM OR PLASMA 6.9 g/dL 6.0 - 8.6 01/31 Specimen Type: PLASMA No comment entered. Ordering Provider: LORY LUU Report Released Date/Time: Jan 10, 2025 01:22 PM Reporting Lab: [place] [phone] Performing Lab: [address] HEPATIC FUNCTION PANEL (MA) ALBUMIN [MASS/VOLU ME] IN SERUM OR PLASMA 4.5 g/dL 3.4 - 5.0 01/31 Specimen Type: PLASMA No comment entered. Ordering Provider: LORY LUU Report Released Date/Time: Jan 10, 2025 01:22 PM Reporting Lab: [place] [address] Performing Lab: [address] HEPATIC FUNCTION PANEL (MA) BILIRUBIN. TOTAL [MASS/VOLU ME] IN SERUM OR PLASMA 0.5 mg/dL 0.2 - 1.2 01/31 Specimen Type: PLASMA No comment entered. Ordering Provider: LORY LUU Report Released Date/Time: Jan 10, 2025 01:22 PM Reporting Lab: [address] Performing Lab: [address] HEPATIC FUNCTION PANEL (MA) ALKALINE PHOSPHATAS E [ENZYMATIC ACTIVITY/V OLUME] IN SERUM OR PLASMA 74 U/L 40 - 150 01/31 Specimen Type: PLASMA No comment entered. Ordering Provider: LORY LUU Report Released Date/Time: Jan 10, 2025 01:22 PM Reporting Lab: [place] [address] Performing Lab: [address] HEPATIC FUNCTION PANEL (MA) ASPARTATE AMINOTRANS FERASE [ENZYMATIC ACTIVITY/V OLUME] IN SERUM OR PLASMA 23 U/L 5 - 34 01/31 Specimen Type: PLASMA No comment entered. Ordering Provider: LORY LUU Report Released Date/Time: Jan 10, 2025 01:22 PM Reporting Lab: [place] [address] Performing Lab: [address] HEPATIC FUNCTION PANEL (MA) ALANINE AMINOTRANS FERASE [ENZYMATIC ACTIVITY/V OLUME] IN SERUM OR PLASMA 21 U/L 8 - 40 01/31 Specimen Type: PLASMA No comment entered. Ordering Provider: LORY LUU Report Released Date/Time: Jan 10, 2025 01:22 PM Reporting Lab: [place] [address] Performing Lab: [address] HEPATIC FUNCTION PANEL (MA) BILIRUBIN. CONJUGATED [MASS/VOLU ME] IN SERUM OR PLASMA 0.2 mg/dL 0.0 - 0.5 01/31 Specimen Type: PLASMA No comment entered. Ordering Provider: LORY LUU Report Released Date/Time: Jan 10, 2025 01:22 PM Reporting Lab: [place] [address] Performing Lab: [address] URINALYS IS (MA-EV) COLOR OF URINE Yellow 01/31 Specimen Type: URINE Comment: Microscopic not indicated Ordering Provider: LORY LUU Report Released Date/Time: Jan 10, 2025 01:22 PM Reporting Lab: [address] [place] [address] Performing Lab: [facility] [address] [place] [phone] URINALYS IS (MA-EV) SPECIFIC GRAVITY OF URINE 1.018 01/31 Specimen Type: URINE Comment: Microscopic not indicated Ordering Provider: LORY LUU Report Released Date/Time: Jan 10, 2025 01:22 PM Reporting Lab: [facility] [address] [place] [address] Performing Lab: [facility] [address] URINALYS IS (MA-EV) UROBILINOG EN [MASS/VOLU ME] IN URINE BY TEST STRIP Normalmg /dL 0.1 - 1.0 01/31 Specimen Type: URINE Comment: Microscopic not indicated Ordering Provider: LORY LUU Report Released Date/Time: Jan 10, 2025 01:22 PM Reporting Lab: [facility] [address] [place] [address] Performing Lab: [facility] [address] URINALYS IS (MA-EV) BILIRUBIN. TOTAL [PRESENCE] IN URINE BY TEST STRIP Negative mg/dL 01/31 Specimen Type: URINE Comment: Microscopic not indicated Ordering Provider: LORY LUU Report Released Date/Time: Jan 10, 2025 01:22 PM Reporting Lab: [facility] [address] [place] [address] Performing Lab: [facility] [address] URINALYS IS (MA-EV) KETONES [MASS/VOLU ME] IN URINE BY TEST STRIP Negative mg/dL 01/31 Specimen Type: URINE Comment: Microscopic not indicated Ordering Provider: LORY LUU Report Released Date/Time: Jan 10, 2025 01:22 PM Reporting Lab: [facility] [address] [place] [phone] Performing Lab: [facility] [address] URINALYS IS (MA-EV) PROTEIN [MASS/VOLU ME] IN URINE BY TEST STRIP Negative mg/dL 01/31 Specimen Type: URINE Comment: Microscopic not indicated Ordering Provider: LORY LUU Report Released Date/Time: Jan 10, 2025 01:22 PM Reporting Lab: [facility] [address] [place] [phone] Performing Lab: [facility] [address] URINALYS IS (MA-EV) PH OF URINE BY TEST STRIP 6.5 5.0 - 8.0 01/31 Specimen Type: URINE Comment: Microscopic not indicated Ordering Provider: LORY LUU Report Released Date/Time: Jan 10, 2025 01:22 PM Reporting Lab: [facility] [address] [place] [phone] Performing Lab: [address] URINALYS IS (MA-EV) APPEARANCE OF URINE Clear 01/31 Specimen Type: URINE Comment: Microscopic not indicated Ordering Provider: LORY LUU Report Released Date/Time: Jan 10, 2025 01:22 PM Reporting Lab: [facility] [address] [place] [phone] Performing Lab: [facility] [address] URINALYS IS (MA-EV) HEMOGLOBIN [MASS/VOLU ME] IN URINE BY TEST STRIP Negative mg/dL 01/31 Specimen Type: URINE Comment: Microscopic not indicated Ordering Provider: LORY LUU Report Released Date/Time: Jan 10, 2025 01:22 PM Reporting Lab: [facility] [address] [place] [phone] Performing Lab: [facility] [address] URINALYS IS (MA-EV) NITRITE [PRESENCE] IN URINE BY TEST STRIP Negative mg/dL 01/31 Specimen Type: URINE Comment: Microscopic not indicated Ordering Provider: LORY LUU Report Released Date/Time: Jan 10, 2025 01:22 PM Reporting Lab: [facility] [address] [phone] Performing Lab: [facility] [address] [place] [phone] [facility] URINALYS IS (MA-EV) LEUKOCYTE ESTERASE [PRESENCE] IN URINE BY TEST STRIP Negative 01/31 Specimen Type: URINE Comment: Microscopic not indicated Ordering Provider: LORY LUU Report Released Date/Time: Jan 10, 2025 01:22 PM Reporting Lab: [facility] [address] [phone] Performing Lab: [place] [phone] URINALYS IS (MA-EV) GLUCOSE [PRESENCE] IN URINE >1000mg/ dL 01/31 H Specimen Type: URINE Comment: Microscopic not indicated Ordering Provider: LORY LUU Report Released Date/Time: Jan 10, 2025 01:22 PM Reporting Lab: [facility] [address] [place], [place] [phone] Performing Lab: [place] [phone] TSH (MA-PB) THYROTROPI N [UNITS/VOL UME] IN SERUM OR PLASMA 2.579 u[IU]/mL 0.470 - 5.000 01/31 Specimen Type: SERUM No comment entered. Ordering Provider: LORY LUU Report Released Date/Time: Jan 10, 2025 01:22 PM Reporting Lab: [facility] [address] [place], [place] [phone] Performing Lab: [address] [phone] [facility] Vital Signs Combined list of inpatient and outpatient Vital Signs from Department of Defense and Veterans Affairs, ranging from 12 months to all on record, depending upon the facility. Vital Sign Value Date Comments Source SYSTOLIC BLOOD PRESSURE 126 01/31/2025 09:08:11 [facility] DIASTOLIC BLOOD PRESSURE 80 01/31/2025 09:08:11 [facility] PULSE OXIMETRY 98 01/31/2025 09:08:11 [facility] WEIGHT 132.1 01/31/2025 09:08:11 [facility] BMI 22 kg/m2 01/31/2025 09:08:11 [facility] PAIN 0 01/31/2025 09:08:11 [facility] HEIGHT 65 01/31/2025 09:08:11 [facility] TEMPERATURE 96.8 01/31/2025 09:08:11 [facility] PULSE 74 01/31/2025 09:08:11 [facility] RESPIRATION 18 01/31/2025 09:08:11 [facility] Encounters Combined list of: 1) Encounters from Department of [facility] Affairs facilities going backup to the last 18 months, not all [place] inpatient encounters are included; 2) Encounters from the [facility] of [facility] [facility] facilities going backup to 280 months. Location Location Details Encounter Type Encounter Number Reason For Visit Attending Provider ADM Date DC Date Status Disposition Source [facility] Outpatient Encounter [id number] 01/22 [facility] Outpatient Encounter [id number] 01/22 [facility] OFFICE O/P EST MOD 30 MIN [id number] Diagnos is: ICD-10- CM R00.2 Palpita tions COLON,TOBI ETTE 01/25 [facility] Outpatient Encounter [id number] 01/25 [facility] En[facility] [id number] 01/25 [facility] En[facility] [id number] 05/22 [facility] En[facility] [id number] 05/25 [facility] Outpatient Encounter [id number] 07/10 [facility] Outpatient Encounter [id number] 07/25 [facility] En[facility] [id number] HELEN KINNEY ZENON A 07/30 [facility] Outpatient Encounter [id number] 11/23 [facility] Outpatient Encounter [id number] 12/08 [facility] Outpatient Encounter [id number] 01/28 [facility] Outpatient Encounter [id number] 01/31 [facility] Outpatient Encounter [id number] 01/31 [facility] OFFICE O/P EST HI 40 MIN [id number] Diagnos is: ICD-10- CM H81.01 Meniere 's disease , right ear LORY LUU 01/31 [facility] Outpatient Encounter [id number] KARTHIKEYAN PELAEZ 02/01 [facility] [id number] BINAURL [id number] Diagnos is: ICD-10- CM H90.3 Sensori neural hearing loss, [place] alanna CASTURSULA HOLLINS NNEKA E 02/06 [facility] HEARING AID REPAIR/MOD IFYING [id number] Diagnos is: ICD-10- CM H90.3 Sensori neural hearing loss, KELY Hernandez L 03/22 [facility] Social History Combined list of available smoking, tobacco, and other social history from [employer] and [facility] Affairs facilities[facility] Social History Type Response Date Comment [facility] e Tobacco smoking status [facility] NEVER USED 01/26/2024 [facility] History [facility] tobacco use [place]-TO[facility] NEVER USED 02/04/2022 [facility] History of tobacco use LIF[employer]IME NON[place] ADMINISTR[place] USER 07/09/2009 ANNE MARIE SEWELLOC
--- OUTSIDE RECORDS SUMMARY | 2025-04-15 12:10 | XMS_ITS | Data Portability ---
Author Organization [facility], [address] [facility] ([place]) Address [address] 4th [place] [address] Care Team Providers Care Arborer Name Role Phone DOMINIC MONTENEGRO Primary Care Provider Assessment Encounter Date Assessment Date Assessment LastModified by Organization Details LastModified Time 02/23/2024 02/23/2024 In summary, Kirby' presents for chronic headache, and vertigo. Brain MRI 08/12/23- unremarkable except for paranasal sinusitis. Baseline neuro-ophthalmic, and neurological examination are normal. On his last visit, I did not appreciate nystagmus, or any brainstem signs. He has sensorineural hearing loss AD, but this is not new. It is plausible that he have migraine/ vestibular migraine, however a very close differential diagnosis in the presence of ataxia is EA2.The intermittent episodes of dizziness and ataxia could be secondary to a condition called episodic ataxia type 2 (EA2). Episodic ataxia type 2 (EA2) is characterized by paroxysmal attacks of ataxia, vertigo, and nausea typically lasting minutes to a few hours. Genetic testing have not been done to confirm EA 2. For migraine prevention, He has had an excellent clinical response to Qulipta 60 mg, daily. He will also take Nurtec for acute migraine attacks. Mechanism of action, risk, and benefits of above medications were discussed in detail. Answered all questions and concerns. Voiced understanding Telehealth consent I understand that [facility] provides telehealth consultations, which are conducted through videoconferencing technology and my healthcare provider will not be present in the exam room with me. I understand there are potential risks to the use of telehealth technology, including but not limited to, interruptions, delays, unauthorized access, and or other technical difficulties. I understand that either my healthcare provider or I can discontinue the telehealth appointment if the technical connections are not adequate for my visit. I have had the alternatives to a telemedicine consultation explained to me and am choosing to participate in a telemedicine consultation. I understand that my healthcare information may be shared with others for scheduling or billing purposes. I understand that individuals other than my provider or any consulting health care provider may be present during the telehealth appointment, in order to operate the telehealth technology. I further understand that I will be informed of their presence, and that any such individuals will maintain the confidentiality of my patient information. I understand that I have the right to request the following when others are present: (1) omit specific details of my medical/physical examination that are personally sensitive to me; (2) ask non-medical individual to leave the telehealth examination room; and/or (3) terminate the telehealth appointment at any time. In an emergent situation, I understand that the responsibility of my telehealth provider may be to direct me to emergency medical services, such as an emergency room. I understand that my unauthorized recording (audio, video, still photography, etc.) of my telehealth with a [facility] provider is strictly prohibited. By acknowledging, I certify that I have read this form and/or had it explained to me, that I understand the risks and benefits of a telehealth appointment, that I have been given the opportunity to ask questions and that such questions have been answered to my satisfaction [email or web address] Not available 02/23/2024 10:18:08 11/23/2024 11/23/2024 In summary, Kirby presents for chronic headache, and vertigo. Brain MRI 08/12/23- unremarkable except for paranasal sinusitis. Baseline neuro-ophthalmic, and neurological examination are normal. I did not appreciate nystagmus, or any brainstem signs. He has sensorineural hearing loss AD, but this is not new. It is plausible that he have migraine/ vestibular migraine, however a very close differential diagnosis in the presence of ataxia is EA2.The intermittent episodes of dizziness and ataxia could be secondary to a condition called episodic ataxia type 2 (EA2). Episodic ataxia type 2 (EA2) is characterized by paroxysmal attacks of ataxia, vertigo, and nausea typically lasting minutes to a few hours. Genetic testing have not been done to confirm EA 2. For migraine prevention, He has had an excellent clinical response to Ubrelvy daily. He will also take Nurtec for acute migraine attacks. He also takes zavzspret as needed. Mechanism of action, risk, and benefits of above medications were discussed in detail. Answered all questions and concerns. Voiced understanding [email or web address] Not available 11/23/2024 13:16:02 Plan of Treatment Reminders Order Date Submit Date Provider Last Modified By Organization Details Last Modified Time [facility]:00P M Dr. Kuldip Duong Not available Not available Not available Lab None recorde d. Referral None recorde d. Procedures None recorde d. Surgeries None recorde d. Imaging None recorde d. Medication Orders None recorde d. Patient TargetsNo targets recorded. Patient InstructionsNo instructions recorded. Reason for Referral None Reported. Problems Name Problem SNOMED Code Status Onset Date Resolution Date Notes Provider Name and Address Organization Details Recorded Time Acute bilateral otitis media 968208527 [facility]24 [facility] 11:[facility]23 Episodic migraine 10400587877348 6 Active 2024 [facility] 11:05:25 Migraine variants 468880052 Active 2024 Kuldip moss MD [address] [place] [address], [phone], [facility] 5 13:16:12 Migraine 65936278 Active 2023 Kuldip moss MD [address] [place] [address], [phone], [facility] 5 13:15:19 Problem Notes None recorded. Medical Equipment None Reported. Allergies Allergen ID Allergen Name Allergen Category Reaction Reaction Severity Criticality Documentation Date Start Date Code Code System Note Provider Name and Address Organization Details Recorded Time 3620982 prednison e medicatio n dizziness severe high 11/09/20232022 8640 RxNorm Yaquelni Addison [facility] 4 17:29:39 3359180 atorvasta tin calcium medicatio n myalgias (muscle pain) Not available Not available 10/18/20242023 31099 RxNorm Gabi Kaufman [facility] 5 11:05:42 5461318 simvastat in medicatio n myalgias (muscle pain) moderate high 10/18/2024 51677 RxNorm Gabi Kaufman [facility] 5 11:06:09 Medications Name Sig Start Date Stop Date Status Note LastModified by Organization Details LastModified Time carvedilol 25 mg tablet TAKE 1 TABLET BY MOUTH TWICE A DAY active Not Available Not Available No t Available carvedilol 6.25 mg tablet TAKE 1 TABLET BY MOUTH TWICE A DAY active Not Available Not Available No t Available carvedilol 12.5 mg tablet TAKE 1 TABLET BY MOUTH 2 TIMES DAILY. 10/18 completed Not Available Not Available Not Available ofloxacin 0.3 % eye drops PLACE 1 DROP INTO THE RIGHT EYE 4 TIMES DAILY FOR 7 DAYS 10/18 completed Not Available Not Available Not Available clobetasol 0.05 % topical cream APPLY TO AFFECTED AREA TWICE A DAY active Not Available Not Available No t Available acetazolami de 250 mg tablet TAKE 1 TABLET BY MOUTH EVERY DAY 10/18 completed Not Available Not Available Not Available clopidogrel 75 mg tablet TAKE 1 TABLET BY MOUTH EVERY DAY active Not Available Not Available No t Available carvedilol 3.125 mg tablet TAKE 1 TABLET BY MOUTH EVERY 12 HOURS active Not Available Not Available No t Available ketorolac 10 mg tablet TAKE 1 TABLET BY MOUTH 4 TIMES A DAY NEEDED FOR PAIN 10/18 completed Not Available Not Available Not Available ofloxacin 0.3 % ear drops PLACE 1 DROP TWICE A DAY 10/18 completed Not Available Not Available Not Available cephalexin 500 mg capsule TAKE 1 CAPSULE BY MOUTH EVERY 6 HOURS FOR 10 DAYS active Not Available Not Available No t Available metformin 1,000 mg tablet TAKE 1 TABLET BY MOUTH TWICE A DAY active Not Available Not Available No t Available neomycin-po lymyxin-dex ameth 3.5 mg/mL-10,00 0 unit/mL-0.1 % eye drops INSTILL 1 DROP INTO RIGHT EYE 4 TIMES A DAY FOR 4 DAYS active Not Available Not Available No t Available losartan 25 mg tablet TAKE 1 TABLET BY MOUTH EVERY DAY active Not Available Not Available No t Available montelukast 10 mg tablet TAKE 1 TABLET BY MOUTH EVERY DAY active Not Available Not Available No t Available zolpidem 5 mg tablet TAKE 1 TABLET BY MOUTH AT BEDTIME NEEDED active Not Available Not Available No t Available zolpidem 10 mg tablet TAKE 1 TABLET BY MOUTH AT BEDTIME NEEDED active Not Available Not Available No t Available azithromyci n 500 mg tablet TAKE 1 TABLET BY MOUTH EVERY DAY FOR 7 DAYS active Not Available Not Available No t Available pitavastati n calcium 1 mg tablet TAKE 1 TABLET BY MOUTH EVERY DAY active Not Available Not Available No t Available pitavastati n calcium 2 mg tablet TAKE 1 TABLET BY MOUTH EVERY DAY active Not Available Not Available No t Available Jardiance 10 mg tablet TAKE 1 (ONE) TABLET DAILY IN THE MORNING FOR DIABETES 10/18 completed Not Available Not Available Not Available Jardiance 25 mg tablet TAKE 1 TABLET BY MOUTH EVERY DAY active Not Available Not Available No t Available Trulicity 1.5 mg/0.5 mL subcutaneou s pen injector INJECT 0.5ML UNDER THE SKIN WEEKLY active Not Available Not Available No t Available Repatha SureClick 140 mg/mL subcutaneou s pen injector INJECT 1ML SUBCUTANE OUSLY EVERY 2 WEEKS active Not Available Not Available No t Available Rybelsus 14 mg tablet TAKE 1 TABLET BY MOUTH EVERY DAY IN THE MORNING ON AN EMPTY STOMACH active Not Available Not Available No t Available Nurtec ODT 75 mg disintegrat ing tablet TAKE 1 TABLET BY MOUTH EVERY DAY NEEDED active Not Available Not Available No t Available Trulicity 3 mg/0.5 mL subcutaneou s pen injector INJECT 0.5ML UNDER THE SKIN WEEKLY active Not Available Not Available No t Available Qulipta 60 mg tablet TAKE 1 TABLET DAILY active Not Available Not Available No t Available Qulipta 30 mg tablet TAKE 1 TABLET BY MOUTH EVERY DAY 10/18 completed Not Available Not Available Not Available FreeStyle Anusha 3 Sensor device USE EVERY 14 DAYS active Not Available Not Available No t Available Zavzpret 10 mg/actuatio n nasal spray TAKE 1 SPRAY NEEDED BY NASAL ROUTE NEEDED FOR 3 DAYS. 2024 active Not Available Not Available Not Avai lable Vitals Date Recorded Body weight Heart rate Oxygen saturation Oxygen saturation in Arterial blood by Pulse oximetry Systolic And Diastolic Provider Name and Address Organization Details Last Updated DateTime 5 25791.6 g 82 /min 98 % 98 % 150/90 mm[Hg] Katey bearden [facility] 5 12:45:09 Social History None recorded. Functional Status None recorded. Mental Status None recorded. Family History Relationship Description Onset Age of this Age Resolved Age Notes LastModified by Organization Details LastModified Time Father Acute myocardial infarction [email or web address] Not available 06/2024 17:30:22 Mother Diabetes mellitus [email or web address] Not available 01/16 17:30:33 Medical History No medical history recorded. Immunizations Vaccine Type Date Status Note Provider Nam e and Address Organization Details Recorded Time Influenza, split virus, quadrivalent, preservative 8 completed Gabi Kaufman [facility] 10/18/2024 11:11:29 Influenza, split virus, quadrivalent, preservative 7 completed Gbai Kaufman [facility] 10/18/2024 11:11:29 zoster recombinant 2 completed Gabi Kaufman [facility] 10/18/2024 11:11:29 zoster recombinant 1 completed Gabi Kaufman [facility] 10/18/2024 11:11:29 Influenza, adjuvanted, quadrivalent, PF 3 completed [facility] 11:11:29 COVID-19, mRNA, LNP-S, PF, 30 mcg/0.3 mL dose 1 completed [facility] 10/18/2024 11:11:29 COVID-19, mRNA, LNP-S, PF, 30 mcg/0.3 mL dose 1 completed [facility] 10/18/2024 11:11:29 COVID-19, mRNA, LNP-S, PF, 30 mcg/0.3 mL dose 1 completed [facility] 10/18/2024 11:11:29 COVID-19, mRNA, LNP-S, PF, 30 mcg/0.3 mL dose, valeriy-sucrose 2 completed [facility] 10/18/2024 11:11:29 COVID-19, mRNA, LNP-S, bivalent, PF, 30 mcg/0.3 mL dose 2 completed [facility] 10/18/2024 11:11:29 RSV, recombinant, protein subunit RSVpreF, adjuvant reconstituted, 0.5 mL, PF 3 completed [facility] 10/18/2024 11:11:29 COVID-19, mRNA, LNP-S, PF, valeriy-sucrose, 30 mcg/0.3 mL 3 completed Gabi Olivere [facility] 10/18/2024 11:11:29 Tdap 7 completed Gabi Kaufman [facility] 10/18/2024 11:11:29 Pneumococcal conjugate PCV 13 7 completed Gabi Kaufman [facility] 10/18/2024 11:11:29 Influenza, split virus, trivalent, preservative 1 completed [facility] 10/18/2024 11:11:29 Influenza, split virus, quadrivalent, PF 2 completed [facility] 10/18/2024 11:11:29 Influenza, split virus, quadrivalent, PF 0 completed Gabi Kaufman [facility] 10/18/2024 11:11:29 Past Encounters Encounter ID Performer Location Encounter Start Date Encounter Closed Date Diagnosis/Indication Diagnosis SNOMED-CT Code Diagnosis ICD10 Code Diagnosis Note [id number] MD Neeru Mercadoria [facility] ([place]) [address] [place] [address] 02/23/2024 09:47:59 02/23/2024 11:45:45 Migraine 94336921 G43.909 [id number] Kuldip Duong MD [address] Neurology ([place]) [address] [place] [address] 11/23/2024 12:21:56 11/23/2024 15:05:00 Migraine 14022512 G43.909 Long-term current use of drug therapy 013664230 Z79.899 Health Concerns Section Related Observation LastModified by Organization Detai ls LastModified Time None Recorded Concern Status LastModified by Organization Details LastModified Time None Recorded Advance Directives Directive None Recorded Payers Insurance Date Sequence Insurance Name Policy Number Policy Dailey Covered Member ID Dailey Member ID Guarantor Name 11/27/2024 1 [place] [id number] Timoteo Sandoval [id number] Timoteo Sandoval 11/23/2024 2 [place] Timoteo Sandoval [id number] Timoteo Sandoval Notes Date Note Type Note Provider Name and Address Organization Details Recorded Time 02/23/2024 text/html Timoteo Sandoval i s a 63-year-old man, I am seeing for follow-up regarding migraine. Previous clinic notes 11/01/23Tom is a 63-year-old man from [place]. I am seeing him today for follow-up regarding migraine.Previous clinic notes 10/20/22He goes by Kirby. He is an [employer] retire[employer]. He is accompanied by his very supportive Stefany. They live in [place]. He does not smoke cigarettes, drink alcohol, or use illicit drugs. 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.Past ocular history is unremarkable except for PCIOL, OU. He has had no episodes of optic neuritis, diplopia, eye trauma or surgery.PMHx: Type 2 diabetes, migraine, seasonal allergies, and unknown hearing loss each ear.He have no history of HIV, hepatitis, TB, or any malignancy. He also denies heart, kidney, and liver disease.Family hx: His mother passed at age 72, likely from complications of type 2 diabetes. His dad also had type 2 diabetes also had coronary artery disease with acute myocardial infarction.Clinical course:Previously seen by Dr. Moss in September 2020 after transient ischemic attack characterized by right hemiparesis. It lasted about 10 minutes. Since that time, he's been free of neuro deficits. CTA later revealed vertebral artery stenosis, possibly high-grade. 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 He was in the when this happened, he had severe episodes of vertigo that he describes a spinning, and almost incapacitating. The first episode in 2002 lasted less than 24 hours, he was mostly in bed. He denies headache, nausea, vomiting, photophobia or phonophobia. Since then, he has been having intermittent episodes of vertigo. Sometimes vertigo is associated with drunk gait. He thinks that dizziness got a lot worse in 2007, but he thinks it is related to his stress. In 2007 the bouts of vertigo are associated with stuttering. He also had a possible TIA in 2007. In 2005, he began to complain hearing loss AD. He thinks left ear is also affected now. He saw ENT cannot recall exactly the diagnosis. He saw his primary care physician who thought that he might have migraine, in particular vestibular migraine. He got 1 dose of Emgality in January, and also started Nurtec. So far he thinks the combination of Emgality Nurtec is helping decrease the episodes of dizziness.Interval history 06/04/21Present for follow up reagrding headache and dizziness. Previously discussed possibility of migraine, and EA2 (has had no genetic testing). He also possibly have Menieres disease. Since Diamox helps with M ni re's disease, vestibular migraine, and EA2, he currently takes Diamox 250 mg 1 tab daily in a.m, however he was unable to tolerate the side effects and discontinued after few weeks. For migraine prevention, he takes Emgality 120 mg subcutaneous injection every month For acute migraine attacks, he takes Nurtec as needed. States he is not sure if Emgality is helping with migraine prevention but he is very happy with the results of blood tests.-The end of March, [place], [place] migraine predominantly dizzy spells. Previously prophylactic and this helped. After that he had 3 other spells which resolves quicklyInterval history 09/10/21At this point, Kirby is not really sure if Emgality is helping with his migraine symptoms. Each time he injects Emgality, he develops a wave of dizziness that starts within 24 hours, and also happens in the third day after injection. Nurtec helps a lot in preventing episodes of headache and dizziness. Patient happy with Nurtec. On her last visit, we discussed ENT evaluation for possible M ni re's disease, and he was approved to see specialist in [place] and at [facility]. He is planning to go to [facility]. Preventative migraine medications that he has failed in the past include Topamax, nortriptyline.Interv al history 10/20/22Presents for video visit today regarding migraine. I also sent him to [place] to rule out M ni re's disease and they agreed with me that he has complicated migraine, perhaps vestibular form of migraine Wants to go back to Emgality as he thinks it might be helping. He is very happy with Nurtec and wants to continue this medInterval history 01/13/2023Tom presents for follow-up today regarding migraine. For migraine prevention, he takes Emgality 120 mg subcutaneous injection every 4 weeks. For acute migraine attacks, he takes Nurtec. Both medications are really helping well to control his migraine. He tolerates both medications well without major side effects. No new concerns.Interval history 3Presents for follow-up today regarding migraine, with intermittent episodes of dizziness. In the past he already tried Emgality, Aimovig, and Ajovy without any benefit. Nurtec seem to help with acute migraine attacks. For the last 6 months he has had episodes of intense vertigo, and occasionally numbness of the face. The vertigo happens at least once a week. He is here today to discuss other treatment options for migraine prevention. Interval history 11/01/23Migraine symptoms are better since starting Qulipta 30 mg for prrevention, and Nurtec for acute attacksNo headachesmild attacks of vertigoBrain MRI 08/12/23- unremarkable except for paranasal sinussitisVery happy with new medsInterval history 02/23/24Tom presents for follow-up regarding migraine. MRI 08/12/2023 unremarkable except for sinusitis. He is very happy with Qulipta 60 mg daily, and Nurtec for acute migraine attacks. He wants to continue this medications. He gave me a few updates about his general health. States he was recently diagnosed with intermittent tachycardia, etiology currently unknown. He is seeing a youth agent for this. Yaquelin Addison [facility] 02/23/2024 10:41:00 11/23/2024 text/html Timoteo Sandoval i s a 64-year-old man, I am seeing for follow-up regarding migraine.Previous clinic notes 02/23/24Kirby is a 63-year-old man from [place]. I am seeing him today for follow-up regarding migraine.Previous clinic notes 10/20/22He goes by Kirby. He is an [employer] retiree. He is accompanied by his very supportive Stefany. They live in [place]. He does not smoke cigarettes, drink alcohol, or use illicit drugs. 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.Past ocular history is unremarkable except for PCIOL, OU. He has had no episodes of optic neuritis, diplopia, eye trauma or surgery.PMHx: Type 2 diabetes, migraine, seasonal allergies, and unknown hearing loss each ear.He have no history of HIV, hepatitis, TB, or any malignancy. He also denies heart, kidney, and liver disease.Family hx: His mother passed at age 72, likely from complications of type 2 diabetes. His dad also had type 2 diabetes also had coronary artery disease with acute myocardial infarction.Clinical course:Previously seen by Dr. Moss in September 2020 after transient ischemic attack characterized by right hemiparesis. It lasted about 10 minutes. Since that time, he's been free of neuro deficits. CTA later revealed vertebral artery stenosis, possibly high-grade. 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 He was in the when this happened, he had severe episodes of vertigo that he describes a spinning, and almost incapacitating. The first episode in 2002 lasted less than 24 hours, he was mostly in bed. He denies headache, nausea, vomiting, photophobia or phonophobia. Since then, he has been having intermittent episodes of vertigo. Sometimes vertigo is associated with drunk gait. He thinks that dizziness got a lot worse in 2007, but he thinks it is related to his stress. In 2007 the bouts of vertigo are associated with stuttering. He also had a possible TIA in 2007. In 2005, he began to complain hearing loss AD. He thinks left ear is also affected now. He saw ENT cannot recall exactly the diagnosis. He saw his primary care physician who thought that he might have migraine, in particular vestibular migraine. He got 1 dose of Emgality in January, and also started Nurtec. So far he thinks the combination of Emgality Nurtec is helping decrease the episodes of dizziness.Interval history 06/04/21Present for follow up reagrding headache and dizziness. Previously discussed possibility of migraine, and EA2 (has had no genetic testing). He also possibly have Menieres disease. Since Diamox helps with M ni re's disease, vestibular migraine, and EA2, he currently takes Diamox 250 mg 1 tab daily in a.m, however he was unable to tolerate the side effects and discontinued after few weeks. For migraine prevention, he takes Emgality 120 mg subcutaneous injection every month For acute migraine attacks, he takes Nurtec as needed. States he is not sure if Emgality is helping with migraine prevention but he is very happy with the results of blood tests.-The end of March, [place], [facility] migraine predominantly dizzy spells. Previously prophylactic and this helped. After that he had 3 other spells which resolves quicklyInterval history 09/10/21At this point, Kirby is not really sure if Emgality is helping with his migraine symptoms. Each time he injects Emgality, he develops a wave of dizziness that starts within 24 hours, and also happens in the third day after injection. Nurtec helps a lot in preventing episodes of headache and dizziness. Patient happy with Nurtec. On her last visit, we discussed ENT evaluation for possible M ni re's disease, and he was approved to see specialist in [place] and at [facility]. He is planning to go to [facility]. Preventative migraine medications that he has failed in the past include Topamax, nortriptyline.Interv al history 10/20/22Presents for video visit today regarding migraine. I also sent him to [place] to rule out M ni re's disease and they agreed with me that he has complicated migraine, perhaps vestibular form of migraine Wants to go back to Emgality as he thinks it might be helping. He is very happy with Nurtec and wants to continue this medInterval history 01/13/2023Tom presents for follow-up today regarding migraine. For migraine prevention, he takes Emgality 120 mg subcutaneous injection every 4 weeks. For acute migraine attacks, he takes Nurtec. Both medications are really helping well to control his migraine. He tolerates both medications well without major side effects. No new concerns.Interval history 07/27/2023resents for follow-up today regarding migraine, with intermittent episodes of dizziness. In the past he already tried Emgality, Aimovig, and Ajovy without any benefit. Nurtec seem to help with acute migraine attacks. For the last 6 months he has had episodes of intense vertigo, and occasionally numbness of the face. The vertigo happens at least once a week. He is here today to discuss other treatment options for migraine prevention.Interval history 11/01/23Migraine symptoms are better since starting Qulipta 30 mg for prrevention, and Nurtec for acute attacksNo headachesmild attacks of vertigoBrain MRI 08/12/23- unremarkable except for paranasal sinussitisVery happy with new medsInterval history 02/23/24Tom presents for follow-up regarding migraine. MRI 08/12/2023 unremarkable except for sinusitis. He is very happy with Qulipta 60 mg daily, and Nurtec for acute migraine attacks. He wants to continue this medications. He gave me a few updates about his general health. States he was recently diagnosed with intermittent tachycardia, etiology currently unknown. He is seeing a youth agent for this. Interval history 11/23/24Tom presents for follow-up regarding migraine. MRI 08/12/2023 unremarkable except for sinusitis. he had a bout of sinusitis/ ear infection in late september, and early October, that made his migraine symptoms really bad. He had an attack of severe vertigo in October, while playing pickleball. Kuldip Duong MD [address] [place] [address], [phone], [facility] 11/26/2024 07:06:56
--- OUTSIDE RECORDS SUMMARY | 2025-04-15 12:10 | XMS_ITS | Encounter Summary ---
Author Name [facility] [place] [facility] [facility] [place] Address [address] [place] [address] Care Team Providers Care Service Girl Name Role Phone LORY LUU [facility] Insurance Providers: All historical and current Section [...] HSELE CT OUT OF Jun 10, 2017 [id number] [phone] Lana ESCOBAR PATIENT ANTHEM BCBS [place] PREFERRED PROVIDER ORGANIZAT ION (PPO) HEALT HSELE CT OUT OF Jun 10, 2017 [id number] Lana ESCOBARS PATIENT ANTHEM BC[place] PREFERRED PROVIDER ORGANIZAT ION (PPO) HEALT HSELE CT OUT OF Jun 10, 2017 [id number] [phone] Lana ESCOBAR PATIENT ANTHEM [place] COMPREHEN SIVE MAJOR MEDICAL HEALT H SELEC T SECON [place] Jun 10, 2017 [id number] [phone] Lana ESCOBAR PATIENT AN[place] PREFERRED PROVIDER ORGANIZAT ION (PPO) ALY AYALA SETH AIDAN Jun 10, 2008 [id number] [phone] Lana ESCOBAR PONCHOS PATIENT BC BS [place] POINT OF SERVICE HEALT HSELE CT OF [place] Jun 10, 2017 [id number] Lana ESCOBARS PATIENT BC BS [place] POINT OF SERVICE HEALT HSELE CT OF [place] Jun 10, 2017 [id number] KAT ESCOBAR PATIENT BS [place] POINT OF SERVICE HEALT HSELE CT OF [place] * Jun 10, 2017 [id number] KAT ESCOBAR PATIENT [place] PREFERRED PROVIDER ORGANIZAT ION (PPO) HEALT HSELE CT OUT OF Jun 10, 2017 [id number] [phone] DYANLana MENDEZ PONCH[place] PREFERRED PROVIDER ORGANIZAT ION (PPO) ALY AYALA SETHU NITY Jun 10, 2008 [id number] [phone] DYANLana MENDEZ HOMAS PATIENT BCBS [place] COMPREHEN SIVE MAJOR MEDICAL HEALT H SELEC T [place] Jun 10, 2017 [id number] Lana ESCOBAR PONCHOS PATIENT BCBS [place] COMPREHEN SIVE MAJOR MEDICAL HEALT HSELE CT SECON [place] Jun 10, 2017 [id number] [phone] Lana ESCOBARS PATIENT BCBS [place]) PREFERRED PROVIDER ORGANIZAT ION (PPO) HEALT HSELE CT OUT OF Jun 10, 2017 [id number] Lana ESCOBAR [place] PATIENT [place]BS [place]) PREFERRED PROVIDER ORGANIZAT ION (PPO) HEALT HSELE CT OUT OF Jun 10, 2017 [id number] Lana ESCOBARS PATIENT EXPRESS SCRIPTS ([id number]) PRESCRIPT ION [place] Oct 10, 2023 [id number] [phone] KAT ESCOBAR PATIENT MEDICARE (WNR) MEDICARE (M) PART A Jun 10, 2023 PART A [id number] [phone] Lana ESCOBARS PATIENT MEDICARE (WNR) MEDICARE (M) PART B Jun 10, 2023 PART B [id number] Lana ESCOBARS PATIENT MEDICARE (WNR) MEDICARE (M) PART A Jun 10, 2023 PART A [id number] Lana ESCOBAR PATIENT MEDICARE (WNR) MEDICARE (M) PART B Jun 10, 2023 PART B [id number] [phone] Lana ESCOBAR PATIENT OPTUM RX PRESCRIPT ION HEALT HSELE CT [place] RX Jun 10, 2017 ERSTX [id number] [phone] Lana ESCOBAR PATIENT OPTUM RX PRESCRIPT ION [place]BS [place] Jun 10, 2017 ERSTX [id number] Lana ESCOBAR PATIENT OPTUMRX PRESCRIPT ION RX PLAN Jun 10, 2017 ERSTX [id number] [phone] Lana ESCOBAR PATIENT PRIME THERAPEUTI CS PRESCRIPT ION BCBSI L ILDR Jun 10, 2008 ILDR [id number] [phone] Lana ESCOBAR PATIENT -FO R-LIFE TRICA RE FOR LIFE WNR Jun 10, 2023 FOR LIFE [id number] [phone] Lana ESCOBAR PATIENT [employer] [place] PREFERRED PROVIDER ORGANIZAT ION (PPO) HEALT HSELE CT OF [place] Jun 10, 2017 [id number] [phone] Lana ESCOBAR PATIENT [employer] [place] POINT OF SERVICE HEALT HSELE CT OF [place] Jun 10, 2017 [id number] [phone] Lana ESCOBAR PATIENT [employer] [place]) PREFERRED PROVIDER ORGANIZAT ION (PPO) DEIRDRE SANTANA MMUNI TYCOL Jun 10, 2008 [id number] [phone] Laan ESCOBAR PATIENT Selected Encounter This section includes the information on record at [place] for the Encounter. Date/Time Encounter Type Encounter Description Reason Pro vider Source IHE Encounter Template Text not used by [facility]
--- OUTSIDE RECORDS SUMMARY | 2025-04-15 12:10 | XMS_ITS | Clinical Summary ---
Author Organization [facility] [address] [facility] Address [address] [place] [address] Care Team Providers Care Aircraft Structural Design Engineer Name Role Phone Tico Hernandez MD Primary Care Provider [phone] Allergies Active Allergy Reactions Criticality Noted Date Comments Prednisone Dizziness Low 09/09/2020 Medications acetaZOLAMIDE (DIAMOX) 250 mg tablet Take 250 mg by mouth daily 2 Active aspirin 81 mg enteric coated tablet Take 81 mg by mouth daily 2 Active cetirizine (ZyrTEC) 10 mg tablet Take 10 mg by mouth daily 2 Active clopidogreL (PLAVIX) 75 mg tablet Take 75 mg by mouth daily 2 Active Jardiance 10 mg tablet Take 25 mg by mouth logistics engineering manager before breakfast 2 Active Emgality Pen 120 mg/mL pen injector 2 Active glucosamine sulfate 1,000 mg capsule Take 1,000 mg by mouth daily Active metFORMIN (GLUCOPHAGE) 1,000 mg tablet Take 1,000 tablets by mouth 2 (two) times a day 2 Active montelukast (SINGULAIR) 10 mg tablet Take 10 tablets by mouth daily 2 Active pravastatin (PRAVACHOL) 40 mg tablet Take 40 tablets by mouth every evening 2 Active Nurtec ODT tablet,disinteg rating Take 75 tablets by mouth as needed Active Active Problems Problem Noted Date Diagnosed Date Vestibular migraine 10/29/2021 Asymmetric SNHL (sensorineural hearing loss) Surgical History Surgery Date Site/Laterality Comments TYMPANOSTOMY TUBE PLACEMENT ANGIOPLASTY vertebral artery Medical History Medical History Date Comments Hyperlipidemia Diabetes mellitus (HCC) Allergic rhinitis Family History Medical History Relation Name Comments Diabetes Father Heart disease Father Diabetes Mother Glaucoma Mother Diabetes Paternal Grandmother Relation Name Status Comments Father Mother Paternal Grandmother Social History Tobacco Use Types Packs/Day Years Used Date Smoking Tobacco: Never Sex and Gender Information Value Date Recorded Sex Assigned at Not on file Legal Sex 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 Gender Identity Male 10/29/2021 10:45 AM OIL WELL SERVICES SUPERVISOR Sexual Orientation Straight 10/29/2021 3: 17 PM OIL WELL SERVICES SUPERVISOR 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 Not on file Not on feng e Obstetrics History Last Filed Vital Signs Vital Sign Reading Time Taken Comments Blood Pressure 125/83 04/22/2022 10:46 AM CDT Pulse 81 04/22/2022 10:46 AM CDT Temperature 35.8 C (96.4 F) 04/22/2022 10:43 AM CDT Respiratory Rate - - Oxygen Saturation 98% 04/22/2022 10:43 AM CDT Inhaled Oxygen Concentration - - Weight 62.4 kg (137 lb 8 oz) 04/22/2022 10:43 AM CDT Height 165.1 cm (5' 5) 04/22/2022 10:43 AM CDT Body Mass Index 22.88 04/22/2022 10:43 AM CDT Plan of Treatment Health Maintenance Due Date Last Done Comments Colon Cancer Screening-Colonoscopy 1960 Depression Screening 1958 Fall Risk Assessment 1960 Hepatitis C Screening 1960 Prostate Cancer Screening-PSA 1958 Hepatitis B Screening 1976 Pneumococcal vaccine 65+ (2 of 2 - PPSV23) 03/10/2018 03/10/2017 Zoster Vaccine (2 of 2) 10/15/2021 08/20/2021 Abdominal Aortic Aneurysm (A AA) Screen 2023 Well Visit 65+ 2023 Covid-19 Vaccine (2023-2 5 season) 2024 07/09/2021, 12/27/2020, 12/05/2020 Influenza Vaccine (Season Ended) 2025 07/09/2021, 07/30/2020, 08/15/2018, Additional history exists DTaP/Tdap/Td Vaccine (2 - Td or Tdap) 06/23/2027 06/23/2017 Insurance [facility] Care Teams Aircraft Structural Design Engineer Relationship Specialty Start Date End Date Tico Hernandez MD [address] [place] [address] [place] [address] PCP - General Family Medicine 08/21/21
--- OUTSIDE RECORDS SUMMARY | 2025-04-15 12:10 | XMS_ITS | Referral Summary ---
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 helper before breakfast 2 Active Emgality Pen 120 [...] Take 75 tablets by mouth as needed 2 Active Active Problems Problem Noted Date Diagnosed Date Vestibular migraine 10/29/2021 Asymmetric SNHL (sensorineural hearing loss) Social History Tobacco Use Types Packs/Day Years Used Date Smoking Tobacco: Never Sex and Gender Information Value Date Recorded Sex Assigned at Not on file Legal Sex Male 1:45 PM UNDERWRITING INTERNSHIP Gender Identity Male 10/29/2021 10:45 AM UNDERWRITING INTERNSHIP Sexual Orientation Straight 10/29/2021 3: 17 PM UNDERWRITING INTERNSHIP 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
--- NOTE | 2025-04-15 13:48 | ED.GENADULT ---
HPI - General Adult General Chief complaint: Skin/Abscess/Foreign Body Stated complaint: chicken bone caught in throat Time Seen by Provider: 04/15/25 11:43 History of Present Illness HPI narrative: 64-year-old male presents to the emergency department for evaluation for pain after swallowing a chicken bone. Patient reports he was eating dinner last night felt that he is eating too fast and did feel a chicken bone go down. Patient states he still has some aching sensation in his esophagus. Patient states he is able to swallow without any pain and patient denies any worsening pain. Patient did swallow liquids in the emergency department had no pain and difficulty. Review of Systems Review of Systems: All systems reviewed & are unremarkable except as noted in HPI and below Exam Narrative: APPEARANCE: Well appearing, no pain, no distress, well-nourished. HEAD: normocephalic, atraumatic. EYES: PERRLA/EOMI, conjunctivae clear. NOSE: Normal no drainage EARS:TMS clear with good light reflex. THROAT: Pharynx clear, no exudate. NECK: Supple. No adenopathy, no masses. RESPIRATORY: Airway patent, respirations nonlabored. Clear to auscultation bilaterally, no rales, rhonchi, wheezing. CARDIOVASCULAR: Regular rate and rhythm without murmurs rubs or gallops. ABDOMINAL: Soft, nontender, nondistended, normal bowel sounds MUSCULOSKELETAL: Moves all extremities. Strength/ROM intact, No edema, No calf tenderness. NEURO: Alert. Cranial nerves II through XII intact. Good gait. Good coordination SKIN: Warm, dry. Normal Color Course Vital Signs Vital signs: Vital Signs Temperature 97.4 F L 04/15/25 10:43 Pulse Rate 73 04/15/25 10:43 Respiratory Rate 18 04/15/25 10:43 Blood Pressure 181/89 H 04/15/25 10:43 Pulse Oximetry 100 04/15/25 10:43 Oxygen Delivery Autopap 04/15/25 10:43 Temperature 97.4 F L 04/15/25 10:43 Pulse Rate 73 04/15/25 10:43 Respiratory Rate 18 04/15/25 10:43 Blood Pressure 181/89 H 04/15/25 10:43 Pulse Oximetry 100 04/15/25 10:43 Oxygen Delivery Autopap 04/15/25 10:43 Medical Decision Making [facility] Narrative Medical decision making narrative: 64-year-old male presents to the emergency department for evaluation for pain after patient was swallowing a chicken bone last night. Patient is handling his secretions and has been able to eat solid food since. Patient does report some mild epigastric ache. Chest x-ray showed no acute abnormality no foreign body and barium esophagram showed no acute abnormalities did show an incidental finding of a diverticulum and this was discussed with GI. They did not feel that the patient needed acute follow-up related to the diverticulum but may need follow-up regarding his esophageal pain. All questions concerns were addressed and patient was discharged to home with instructions for follow-up as needed. Differential Diagnosis Differential Diagnosis: Boerhaave, esophageal perforation, esophageal foreign body Vital Signs Vital Signs: Vital Signs Temperature 97.4 F L 04/15/25 10:43 Pulse Rate 73 04/15/25 10:43 Respiratory Rate 18 04/15/25 10:43 Blood Pressure 181/89 H 04/15/25 10:43 Pulse Oximetry 100 04/15/25 10:43 Oxygen Delivery Autopap 04/15/25 10:43 Temperature 97.4 F L 04/15/25 10:43 Pulse Rate 73 04/15/25 10:43 Respiratory Rate 18 04/15/25 10:43 Blood Pressure 181/89 H 04/15/25 10:43 Pulse Oximetry 100 04/15/25 10:43 Oxygen Delivery Autopap 04/15/25 10:43 Imaging Data Radiologist's impression: Impressions Esophagus X-Ray 04/15/25 14:37 IMPRESSION: 1. Likely incidental 2 cm esophageal diverticulum arising from the right side of the midthoracic esophagus. No mucosal irregularities or extra luminal extravasation to suggest esophageal injury or evident retained foreign bodies. Chest X-Ray 04/15/25 14:50 IMPRESSION: No acute process. No radiopaque foreign body seen. Discharge Plan Discharge Clinical Impression: Esophageal pain Patient Disposition: Home Condition: Stable Instructions: Antibiotic Form, Soft Diet (ED), Esophagitis (ED) Additional Instructions: Follow a soft diet for the next few days. Have close follow-up with your primary care physician. Additionally you may need follow-up with GI. If you have any worsening symptoms please call or return to the emergency department. Patient Language: Swedish Follow-up/Referrals: Tico Hernandez M.D. [Primary Care Provider] - Xiang Jones MD [Physician] -
== END 2025-04-15 16:21 | disposition home or self-care (01) ==
PROVIDERS: Emergency Provider Emergency Medicine; PCP Family Medicine
DX: R07.0 Pain in throat (principal)
CPT/HCPCS: 71046; 74220; 99283